=== PATIENT | female | born 1950 | race Caucasian/White ===

== ENCOUNTER 2016-06-25 13:32 | Emergency (ER) | payer MEDICARE, BC ==
[2016-06-25] MEDS ORDERED: Ibuprofen TAB* 600 MG PO ONE (14:31)
--- NOTE | 2016-06-25 15:11 | ED ---
Upper Extremity Pain - HPI Summary HPI Summary: 65 female presents complaining right shoulder pain and neck soreness after falling off of her bed from having a nightmare on 06/21/16. She states the pain did not appear until a few days later and has gotten worse over the past 2 days. Her daughter suggested she have it checked out. Patient states she did not lose consciousness she was just confused when she woke up on the ground from falling. She did take Advil yesterday which did give her some relief. She is able to move her shoulder although it causes pain. Denies numbness/tingling and weakness. - History of Current Complaint Chief Complaint: EDTraumaMultiple Stated Complaint: FALL / RT SHOULDER-NECK PAIN Time Seen by Provider: 06/25/16 14:16 Hx Obtained From: Patient Mechanism Of Injury: Fall From Height Of: - her bed onto ground Onset/Duration: Started Days Ago, Traumatic, Worse Since Timing: Constant Severity Initially: Mild Severity Currently: Moderate Pain Location: Shoulder Character: Dull, Aching Aggravating Factor(s): Movement, Extension Alleviating Factor(s): Rest, OTC Meds Associated Signs & Symptoms: Positive: Bruising. Negative: Swelling, Redness, Numbness/Tingling Related History: Dominant Hand Right - Allergies/Home Medications Allergies/Adverse Reactions: Allergies Allergy/AdvReac Type Severity Reaction Status Date / Time Iodinated Contrast Media Allergy Severe Shortness Verified 06/25/16 13:47 of Breath Alcohol Allergy Unknown Verified 06/25/16 13:47 Reaction Details PMH/Surg Hx/FS Hx/Imm Hx Endocrine/Hematology History: Denies: Hx Diabetes, Hx Thyroid Disease Cardiovascular History: Reports: Hx Angina, Hx Coronary Artery Disease - stent 2005, Hx Hypercholesterolemia, Hx Hypertension - TREATED, Other Cardiovascular Problems/Disorders - CHILDHOOD PROBLEMS WITH LUNGS Denies: Hx Congestive Heart Failure, Hx Pacemaker/ICD Respiratory History: Reports: Hx Asthma, Hx Pneumonia, Hx Pulmonary Edema - current Denies: Hx Chronic Obstructive Pulmonary Disease (COPD), Other Respiratory Problems/Disorders GI History: Denies: Hx Ulcer Musculoskeletal History: Reports: Hx Arthritis Sensory History: Reports: Hx Contacts or Glasses Denies: Hx Cataracts Opthamlomology History: Reports: Hx Contacts or Glasses Denies: Hx Cataracts - Surgical History Surgery Procedure, Year, and Place: hysterectomy. partial thyroidectomy. right shoulder surgery. [facility]. cardiac stent - Immunization History Date of Tetanus Vaccine: Unk Date of Influenza Vaccine: None for 2012 Infectious Disease History: No Infectious Disease History: Denies: Hx Clostridium Difficile, Hx Hepatitis, Hx Human Immunodeficiency Virus (HIV), Hx of Known/Suspected MRSA, Hx Shingles, Hx Tuberculosis, History Other Infectious Disease, Traveled Outside the [place] in Last 30 Days - Family History Known Family History: Positive: Cardiac Disease, Hypertension - Social History Alcohol Use: None Substance Use Type: Reports: None Hx Tobacco Use: No Smoking Status (MU): Never Smoked Tobacco Review of Systems Constitutional: Negative Cardiovascular: Negative Respiratory: Negative Gastrointestinal: Negative Positive: Arthralgia, Myalgia - right shoulder Skin: Negative Neurological: Negative Psychological: Normal All Other Systems Reviewed And Are Negative: Yes Physical Exam Triage Information Reviewed: Yes Vital Signs On Initial Exam: Initial Vitals Temp Pulse Resp BP Pulse Ox 98.3 F 57 16 128/76 98 06/25/16 13:48 06/25/16 13:48 06/25/16 13:48 06/25/16 13:48 06/25/16 13:48 Vital Signs Reviewed: Yes Appearance: Positive: Well-Appearing, No Pain Distress, Well-Nourished Skin: Positive: Warm, Skin Color Reflects Adequate Perfusion, Dry Head/Face: Positive: Normal Head/Face Inspection Eyes: Positive: Normal, Conjunctiva Clear ENT: Positive: Hearing grossly normal Neck: Positive: Supple, Nontender - bony tenderness. minimal tenderness when palpating the lateral muscles of the neck, no cervical bony tenderness. Respiratory/Lung Sounds: Positive: Clear to Auscultation, Breath Sounds Present Cardiovascular: Positive: Normal, RRR, Pulses are Symmetrical in both Upper and Lower Extremities Abdomen Description: Positive: Nontender, Soft Bowel Sounds: Positive: Present Musculoskeletal: Positive: Normal, Strength/ROM Intact - no crepitus, step-off or deformity noted. small area of ecchymosis noted, dime size. skin and sensation intact., Pain @ - right posterior shoulder blade.. Negative: Edema Right Neurological: Positive: Normal, Sensory/Motor Intact, Alert, Oriented to Person Place, Time, CN Intact II-III, Reflexes Intact, NV Bundle Intact Distally, Normal Gait Psychiatric: Positive: Normal Diagnostics - Vital Signs Vital Signs Temp Pulse Resp BP Pulse Ox 06/25/16 13:48 98.3 F 57 16 128/76 98 - Laboratory Lab Statement: Any lab studies that have been ordered have been reviewed, and results considered in the medical decision making process. - Radiology shoulder right Xray Interpretation: No Acute Changes - AC joint arthritis. without evidence of fracture. Radiology Interpretation Completed By: Radiologist Re-Evaluation - Re-Evaluation First Eval Re-Evaluation Time: 15:45 Change: Improved - pain has improved after ibuprofen Course/Dx - Course Course Of Treatment: x-ray was obtained and negative. given ibuprofen and had some relief. told to continue taking ibuprofen and ice/heat the area. follow-up. - Diagnoses Differential Diagnosis/HQI/PQRI: Positive: Contusion, Fracture (Closed), Strain , Sprain Provider Diagnoses: Muscle strain of left scapular region, Contusion Discharge - Discharge Plan Condition: Stable Disposition: HOME Patient Education Materials: Muscle Strain (ED), Shoulder Pain (ED) Referrals: Jesika Rios MD [Primary Care Provider] - Additional Instructions: Take ibuprofen or aleve for pain and inflammation. Rest the area. Ice/heat as needed and use pain as your guide for physical activity. If symptoms worsen or do not improve please seek medical attention. Follow up with your PCP is recommended.
--- NOTE | 2016-06-25 16:22 | RAD ---
Indication: Right shoulder pain. 3 views of the right shoulder demonstrates no fracture. AC joint arthritis is noted. Lung downey are clear. IMPRESSION: AC joint arthritis without evidence of fracture.
[2016-06-25 17:10] VITALS: BP 150/68
== END 2016-06-25 16:55 | disposition home or self-care (01) ==
LOC: ED 13:32
DX: S40.012A Contusion of left shoulder, initial encounter (principal); W19.XXXA Unspecified fall, initial encounter; Y93.9 Activity, unspecified; Y92.9 Unspecified place or not applicable; Y99.9 Unspecified external cause status
CPT/HCPCS: 99282; A9270-GY

== ENCOUNTER 2017-06-25 11:00 | Emergency (ER) | payer MEDICARE, BC ==
[2017-06-25 11:37] VITALS: BP 124/83
--- NOTE | 2017-06-25 12:47 | UC ---
Respiratory Complaint HPI - HPI Summary HPI Summary: 66 yo female has been wheezing x 1 month out of inhaler now with cough and right sided CP x 3-4 days ? fever no SOB - History of Current Complaint Chief Complaint: UCRespiratory Stated Complaint: FLU SYMPTOMS Time Seen by Provider: 06/25/17 12:31 Hx Obtained From: Patient Onset/Duration: Gradual Onset Severity Currently: Moderate Pain Intensity: 6 Pain Scale Used: 0-10 Numeric Character: Cough: Productive Alleviating Factors: Nothing - Allergies/Home Medications Allergies/Adverse Reactions: Allergies Allergy/AdvReac Type Severity Reaction Status Date / Time alcohol Allergy Unknown Verified 06/25/17 11:30 Reaction Details Iodinated Contrast- Oral and Allergy Shortness Verified 06/25/17 11:30 IV Dye of Breath shellfish derived Allergy Rash Verified 06/25/17 11:30 Home Medications: Home Medications Simvastatin 20 mg PO DAILY 06/25/17 [History Confirmed 06/25/17] PMH/Surg Hx/FS Hx/Imm Hx Previously Healthy: Yes Respiratory History: Asthma, Bronchitis, Pneumonia, Other - remote hx of TB Other Respiratory History: remote hx TB - Surgical History Surgical History: Yes Surgery Procedure, Year, and Place: hysterectomy. partial thyroidectomy. right shoulder surgery. [facility]. cardiac stent - Family History Known Family History: Positive: Cardiac Disease, Hypertension - Social History Alcohol Use: None Substance Use Type: None Smoking Status (MU): Never Smoked Tobacco Household Exposure Type: Cigarettes - Immunization History Most Recent Influenza Vaccination: unk Most Recent Tetanus Shot: unk Most Recent Pneumonia Vaccination: unk Review of Systems Constitutional: Fatigue Skin: Negative Eyes: Negative ENT: Negative Respiratory: Cough Cardiovascular: Negative Gastrointestinal: Negative Genitourinary: Negative Motor: Negative Neurovascular: Negative Musculoskeletal: Negative Neurological: Negative Psychological: Negative Is Patient Immunocompromised?: No All Other Systems Reviewed And Are Negative: Yes Physical Exam Triage Information Reviewed: Yes Appearance: Well-Appearing, No Pain Distress, Well-Nourished Vital Signs: Initial Vital Signs Temp 98.2 F 06/25/17 11:33 Pulse 92 06/25/17 11:33 Resp 16 06/25/17 11:33 BP 124/83 06/25/17 11:33 Pulse Ox 97 06/25/17 11:33 Vital Signs Reviewed: Yes Eye Exam: Normal Eyes: Positive: Conjunctiva Clear ENT: Positive: Hearing grossly normal, Uvula midline. Negative: Nasal congestion, Nasal drainage, Trismus, Muffled voice Neck: Positive: Supple, Nontender, No Lymphadenopathy Respiratory: Positive: No respiratory distress, No accessory muscle use, Wheezing Cardiovascular: Positive: RRR Musculoskeletal: Positive: ROM Intact, No Edema Neurological: Positive: Alert Psychological Exam: Normal Skin Exam: Normal UC Diagnostic Evaluation - Laboratory O2 Sat by Pulse Oximetry: 97 - normal/not hypoxic - Radiology Xray Interpretation: No Acute Changes - no infiltrate noted/scarring left lung unchanged Radiology Interpretation Completed By: Radiologist Respiratory Course/Dx - Course Course Of Treatment: influenza (-) - Differential Dx/Diagnosis Provider Diagnoses: acute bronchitis Discharge - Discharge Plan Condition: Stable Disposition: HOME Patient Education Materials: Acute Bronchitis (ED) Referrals: Jesika Rios MD [Primary Care Provider] -
--- NOTE | 2017-06-25 13:03 | RAD ---
Indication: Right-sided Rales. 2 views of the chest including dual energy PA views demonstrates left apical scarring and left suprahilar retraction. This is unchanged from May 01 2015. Lung downey are otherwise clear. IMPRESSION: No definite pneumonia is identified. Scarring and retraction of the left suprahilar region superiorly.
[2017-06-25] MEDS ORDERED: Albuterol HFA INHALER* 8 gm MDI INH ONE (13:08)
== END 2017-06-25 14:19 | disposition home or self-care (01) ==
LOC: UCEAST 11:00
DX: J20.9 Acute bronchitis, unspecified (principal); J45.909 Unspecified asthma, uncomplicated; Z90.710 Acquired absence of both cervix and uterus; E89.0 Postprocedural hypothyroidism; Z90.49 Acquired absence of other specified parts of digestive tract; Z95.5 Presence of coronary angioplasty implant and graft; Z86.11 Personal history of tuberculosis
CPT/HCPCS: 71046; 87502; 99212; A9270-GY; G0463

== ENCOUNTER 2018-04-09 10:02 | Emergency (ER) | payer MEDICARE, BC ==
--- OUTSIDE RECORDS SUMMARY | 2018-04-09 10:12 | XMS REPORT | Continuity of Care Document ---
:1950 External Reference #:[id number] Author Name Rigo Chino Care Team Providers Name Role Phone Lorenza Rios MD Primary Care Physician Unavailable Payers Type Date Identification Numbers Payment Provider Subscriber Policy Number: [id number] Medicare Abimbola Alvarez PayID: [id number] [address] [place] [address] Effective: 2007 Policy Number: [id number] Medicare Abimbola Alvarez Expires: 2018 PayID: [id number] [address] [place] [address] Policy Number: [id number] [facility] Abimbola Alvarez Group Name: [id number] [address] [address] PayID: [id number] JIMBO Carrington [id number] Advance Directives Description No Information Available Problems Date Description Provider Status Onset: 05/29/2012 Pure hypercholesterolemia Kris Soto M.D. Active Onset: 05/29/2012 Coronary arteriosclerosis Kris Soto M.D. Active Onset: 05/29/2012 Benign essential hypertension Kris Soto M.D. Active Onset: 06/08/2013 Pulmonary embolism Kris Soto M.D. Active Onset: 12/06/2015 Essential hypertension Kris Soto M.D. Active Family History Date Family Member(s) Problem(s) Comments General Hypertension General Hypercholesterolemia Father due to [place] () - htn : (age 65 Years) Mother due to [place] asthma Siblings 3 Social History Type Date Description Comments Sex Unknown Marital Status Lives With Children Occupation Currently Working [employer] Tobacco Use Start: Unknown Never Smoked Cigarettes ETOH Use Denies alcohol use Tobacco Use Start: Unknown Patient has never smoked Recreational Drug Use Denies Drug Use Smoking Status Reviewed: 04/07/18 Patient has never smoked Exercise Type/Frequency Does not exercise Exercise Limitations Joint Pain Allergies, Adverse Reactions, Alerts Description No Known Drug Allergies Medications Medication Date Status Form Strength Qnty SIG Indications Ordering Provider Altace 10/23/ Active Capsules 2.5mg 90caps 1 cap by Kris 2017 mouth F. daily Dilip Soto Crestor 09/18/ Active Tablets 5mg 90tabs 1 by mouth Kris 2016 every day F. (resumed Charles, 12/27/16) Dilip Potassium 12/29/ Active Tablets ER 10Meq 180tab 2 by mouth Kris Chloride Leeann ER 2015 s daily F. Dilip Soto Spironolactone 12/29/ Active Tablets 25mg 90tabs 1 by mouth I10 Kris 2015 every day F. 07/15 yoana Soto M.D. not taking Magnesium Oxide 09/03/ Active Tablets 250mg 30tabs 1 by mouth Kris 2013 every day Etta Soto M.D. Prilosec / Active Capsules 20mg 90caps 1 po qd Unknown 0000 DR Pam Norton / Active Misc 250/50 1units 1 puff bid Unknown 0000 Nitrostat / Active Tablets 0.4mg 25tabs one sl Kris 0000 Sub q5min up F. to 3 doses Mausexavi, as needed Dilip Potassium 07/29/ Hx Capsules 10Meq 180cap 2 by mouth Kris Chloride ER 2013 - ER s every day F. 12/29/ Charles, 2015 Dilip Aspirin 81 06/08/ Hx Tablets 81mg 1 tab po I25.10 Kris 2013 - daily F. 11/28/ Meaghanusexavi, 2015 Dilip Altace 12/22/ Hx Capsules 5mg 30caps 1 po qd Kris 2010 - F. 10/23/ Charles, 2016 Dilip Altace 12/07/ Hx Capsules 2.5mg 100cap 1 po qd Kris 2010 - . 12/22/ Mauser, 2010 Dilip Simvastatin 03/11/ Hx Tablets 20mg 30tabs 1 po qd Kris 2008 - . use, 2016 Dilip KCL 12/14/ Hx 10Meq one po qd Kris 2008 - . user, 2009 Dilip Potassium 08/11/ Hx Tablets ER 10Meq 60tabs 2 by mouth Kris Chloride CR 2008 - every day . user, 2013 Dilip Asa 06/11/ Hx 81mg 90unit 1 po qd Kris 2008 - . 01/12/ user, 2009 Dilip Skelaxin / Hx Tablets 800mg 30tabs 1 q 8 Unknown 0000 - hours prn muscle 2011 spasms Bisoprolol / Hx Tablets 5mg 10/03/16 Unknown Fumarate - 05/07 po 10/23/ qod x 2 2017 weeks and then DC Simvastatin / Hx Tablets 40mg 90tabs 1 po qhs Unknown 0000 - 2008 Oxycodone/Acetam / Hx Tablets 5-325mg one q 4 hr Unknown inophen 0000 - prn 2010 Celebrex / Hx Capsules 200mg 30caps 1 po qd Unknown - 2009 Medications Administered in Office Medication Date Status Form Strength Qnty SIG Indications Ordering Provider Inj, 11/26/ Administered Injection Gavino S. Regadenoson, 0.1 2016 DO Stevan MG FACC Aminophylline 11/26/ Administered Injection Gavino S. 2017 DO Stevan FACC Technetium TC 11/26/ Administered Injection Gavino S. 99M Tetrofosmin, 2017 DO Stevan Per Unit Dose Up FACC To 40 Millicuries Inj, 12/26/ Administered Injection Herrera D. Regadenoson, 0.1 2016 Brand, MG M.D. Technetium TC 12/26/ Administered Injection Herrera D. 99M Tetrofosmin, 2016 Brand, Per Unit Dose Up M.D. To 40 Millicuries Immunizations Description No Information Available Vital Signs Date Vital Result Comment 04/07/2018 11:42am Height 60 inches 5'0" Weight 122.38 lb Heart Rate 70 /min BP Systolic Sitting 142 mmHg rue reg cuff BP Diastolic Sitting 86 mmHg rue reg cuff BP Systolic Standing 139 mmHg la repeat sitting BP Diastolic Standing 74 mmHg la repeat sitting BMI (Body Mass Index) 23.9 kg/m2 Ejection Fraction 60-65% echo 11/13/16 07/15/2017 11:40am Height 60 inches 5'0" Weight 120.25 lb Heart Rate 72 /min BP Systolic Sitting 136 mmHg LA, reg cuff BP Diastolic Sitting 72 mmHg LA, reg cuff BMI (Body Mass Index) 23.5 kg/m2 Ejection Fraction 60%-65% echo 11/13/16 02/18/2017 10:47am Height 60 inches 5'0" Weight 121.75 lb with shoes Heart Rate 94 /min BP Systolic Sitting 156 mmHg Lue reg cuff BP Diastolic Sitting 88 mmHg Lue reg cuff BP Systolic Standing 139 mmHg LA Repeat Sitting BP Diastolic Standing 78 mmHg LA Repeat Sitting Respiratory Rate 17 /min BMI (Body Mass Index) 23.8 kg/m2 Ejection Fraction 72% date 11/26/16 ECHO 12/04/2016 11:13am Height 60 inches 5'0" Weight 122.00 lb with sandals Heart Rate 70 /min BP Systolic Sitting 126 mmHg Lue reg cuff BP Diastolic Sitting 80 mmHg Lue reg cuff BP Systolic Standing 118 mmHg Lue reg cuff BP Diastolic Standing 80 mmHg Lue reg cuff Respiratory Rate 17 /min BMI (Body Mass Index) 23.8 kg/m2 Ejection Fraction 60-65% date 11/13/16 ECHO 10/23/2016 10:50am Height 60 inches 5'0" Weight 122.00 lb without shoes Heart Rate 62 /min BP Systolic Sitting 110 mmHg Lue reg cuff BP Diastolic Sitting 72 mmHg Lue reg cuff BP Systolic Standing 122 mmHg Lue reg cuff BP Diastolic Standing 74 mmHg Lue reg cuff Respiratory Rate 16 /min BMI (Body Mass Index) 23.8 kg/m2 09/18/2016 10:45am Height 60 inches 5'0" Weight 121.75 lb with shoes Heart Rate 76 /min BP Systolic Sitting 124 mmHg LA reg cuff BP Diastolic Sitting 70 mmHg LA reg cuff BMI (Body Mass Index) 23.8 kg/m2 Ejection Fraction 50% - 55% stress echo 07/28/08 01/16/2016 1:05pm Height 60 inches 5'0" Weight 123.00 lb with shoe s Heart Rate 66 /min BP Systolic Sitting 114 mmHg LA reg cuff BP Diastolic Sitting 70 mmHg LA reg cuff BP Systolic Standing 116 mmHg LA reg cuff BP Diastolic Standing 70 mmHg LA reg cuff Respiratory Rate 16 /min BMI (Body Mass Index) 24.0 kg/m2 Ejection Fraction 68% date 12/27/15 Nem Convert to NLM 12/30/2015 7:57am Height 60 inches 5'0" Weight 125.00 lb w/ shoes Heart Rate 56 /min BP Systolic Sitting 120 mmHg Lue, reg cuff BP Diastolic Sitting 84 mmHg Lue, reg cuff BP Systolic Standing 132 mmHg Lue BP Diastolic Standing 90 mmHg Lue Respiratory Rate 16 /min BMI (Body Mass Index) 24.4 kg/m2 Ejection Fraction 55-60% as of 06/08/2005 echo 12/06/2015 11:34am Height 60 inches 5'0" Weight 122.00 lb w/shoes Heart Rate 54 /min BP Systolic Sitting 150 mmHg LA reg cuff BP Diastolic Sitting 82 mmHg LA reg cuff BMI (Body Mass Index) 23.8 kg/m2 Ejection Fraction 55-60% Stress Test 07/30/12 10/12/2014 2:13pm Height 60 inches 5'0" Weight 124.00 lb w/o shoes Heart Rate 76 /min reg BP Systolic Sitting 124 mmHg Lue, reg cuff BP Diastolic Sitting 80 mmHg Lue, reg cuff BP Systolic Standing 120 mmHg Lue BP Diastolic Standing 82 mmHg Lue Respiratory Rate 18 /min BMI (Body Mass Index) 24.2 kg/m2 06/08/2013 1:13pm Height 60 inches 5'0" Weight 116.12 lb Heart Rate 64 /min BP Systolic Sitting 144 mmHg BP Diastolic Sitting 80 mmHg BMI (Body Mass Index) 22.7 kg/m2 05/29/2012 8:29am Height 60 inches 5'0" Weight 118.00 lb Heart Rate 52 /min BP Systolic 126 mmHg BP Diastolic 80 mmHg BMI (Body Mass Index) 23.0 kg/m2 07/19/2011 2:51pm Height 60 inches 5'0" Weight 122.00 lb Heart Rate 54 /min BP Systolic Sitting 124 mmHg L BP Diastolic Sitting 80 mmHg L BMI (Body Mass Index) 23.8 kg/m2 12/07/2010 2:54pm Height 60 inches 5'0" Weight 124.00 lb Heart Rate 55 /min BP Systolic Sitting 154 mmHg BP Diastolic Sitting 84 mmHg BMI (Body Mass Index) 24.2 kg/m2 01/12/2010 10:55am Height 60 inches 5'0" Weight 125.00 lb Heart Rate 67 /min BP Systolic Sitting 130 mmHg L BP Diastolic Sitting 74 mmHg L BMI (Body Mass Index) 24.4 kg/m2 02/11/2009 11:36am Height 60 inches 5'0" Weight 119.00 lb Heart Rate 57 /min BP Systolic Sitting 130 mmHg L BP Diastolic Sitting 74 mmHg L BMI (Body Mass Index) 23.2 kg/m2 06/11/2008 9:22am Height 60 inches 5'0" Weight 109.00 lb Heart Rate 57 /min BP Systolic Sitting 120 mmHg left arm, right arm 124/78 BP Diastolic Sitting 70 mmHg left arm, right arm 124/78 BP Systolic Standing 104 mmHg BP Diastolic Standing 70 mmHg BMI (Body Mass Index) 21.3 kg/m2 Results Test Date Facility Test Result H/L Range Note CBC Auto Diff 07/16/2017 [facility] White Blood 7.2 10^3/uL N 3.5-10.[address] [place] [address] [phone] Red Blood Count 4.57 10^6/uL N 4.0-5.4 Hemoglobin 13.3 g/dL N 12.0-16.0 Hematocrit 39 % N 35-47 Mean Corpuscular Volume 86 fL N 80-97 Mean Corpuscular Hemoglobin 29 pg N 27-31 Mean Corpuscular HGB Conc 34 g/dL N 31-36 Red Cell Distribution Width 13 % N 10.5-15 Platelet Count 248 10^3/uL N 150-450 Mean Platelet Volume 10 um3 N 7.4-10.4 Abs Neutrophils 4.6 10^3/uL N 1.5-7.7 Abs Lymphocytes 1.9 10^3/uL N 1.0-4.8 Abs Monocytes 0.5 10^3/uL N 0-0.8 Abs Eosinophils 0.2 10^3/uL N 0-0.6 Abs Basophils 0 10^3/uL N 0-0.2 Abs Nucleated RBC 0 10^3/uL Granulocyte % 63.1 % N 38-83 Lymphocyte % 26.8 % N 25-47 Monocyte % 7.2 % High 0-7 Eosinophil % 2.3 % N 0-6 Basophil % 0.6 % N 0-2 Nucleated Red Blood Cells % 0.1 Laboratory test 07/16/2017 [facility] B-Type 26 pg/mL [address] [place] [address] Peptide BNP [phone] Lipid Panel - 07/16/2017 [facility] Creatine 173 U/L N 10-[address] Kinase(CK) [place] [address] [phone] Comp Metabolic 07/16/2017 [facility] Sodium 140 mmol/L N 133- [address] [place] [address] [phone] Potassium 4.2 mmol/L N 3.5-5.0 Chloride 105 mmol/L N 101-111 Co2 Carbon Dioxide 28 mmol/L N 22-32 Anion Gap 7 mmol/L N 2-11 Glucose 105 mg/dL High 70-100 Blood Urea Nitrogen 19 mg/dL N 6-24 Creatinine 0.85 mg/dL N 0.51-0.95 BUN/Creatinine Ratio 22.4 High 8-20 Calcium 9.4 mg/dL N 8.6-10.3 Total Protein 7.4 g/dL N 6.4-8.9 Albumin 4.3 g/dL N 3.2-5.2 Globulin 3.1 g/dL N 2-4 Albumin/Globulin Ratio 1.4 N 1-3 Total Bilirubin 0.40 mg/dL N 0.2-1.0 Alkaline Phosphatase 50 U/L N 34-104 Alt 11 U/L N 7-52 Ast 13 U/L N 13-39 Egfr Non- 66.7 >60 Egfr 85.8 >60 3 Lipid Profile 07/16/2017 [facility] Triglycerides 90 mg/dL 4 (Trig/Chol/HDL) [address] [place] [address] [phone] Cholesterol 125 mg/dL 5 HDL Cholesterol 46.0 mg/dL 6 LDL Cholesterol 61 mg/dL 7 Laboratory test 10/09/2016 [facility] Magnesium 1.7 mg/dL Low 1.9-2.[address] [place] [address] [phone] Lipid Panel - 10/09/2016 [facility] Creatine 86 U/L N 10-[address] Kinase(CK) [place] [address] [phone] Comp Metabolic 10/09/2016 [facility] Sodium 139 mmol/L N 133- [address] [place] [address] [phone] Potassium 4.4 mmol/L N 3.5-5.0 Chloride 104 mmol/L N 101-111 Co2 Carbon Dioxide 26 mmol/L N 22-32 Anion Gap 9 mmol/L N 2-11 Glucose 106 mg/dL High 70-100 Blood Urea Nitrogen 15 mg/dL N 6-24 Creatinine 0.85 mg/dL N 0.51-0.95 BUN/Creatinine Ratio 17.6 N 8-20 Calcium 9.1 mg/dL N 8.6-10.3 Total Protein 7.0 g/dL N 6.4-8.9 Albumin 4.1 g/dL N 3.2-5.2 Globulin 2.9 g/dL N 2-4 Albumin/Globulin Ratio 1.4 N 1-3 Total Bilirubin 0.50 mg/dL N 0.2-1.0 Alkaline Phosphatase 39 U/L N 34-104 Alt 10 U/L N 7-52 Ast 13 U/L N 13-39 Egfr Non- 66.9 N >60 Egfr 86.1 N >60 8 Lipid Profile 10/09/2016 [facility] Triglycerides 103 mg/dL N 9 (Trig/Chol/HDL) [address] [place] [address] [phone] Cholesterol 128 mg/dL N 10 HDL Cholesterol 40.3 mg/dL N 11 LDL Cholesterol 67 mg/dL N 12 CBC Auto Diff 10/09/2016 [facility] White Blood 7.6 10^3/uL N 3.5-10.[address] [place] [address] [phone] Red Blood Count 4.30 10^6/uL N 4.0-5.4 Hemoglobin 12.3 g/dL N 12.0-16.0 Hematocrit 37 % N 35-47 Mean Corpuscular Volume 86 fL N 80-97 Mean Corpuscular Hemoglobin 29 pg N 27-31 Mean Corpuscular HGB Conc 33 g/dL N 31-36 Red Cell Distribution Width 13 % N 10.5-15 Platelet Count 250 10^3/uL N 150-450 Mean Platelet Volume 9 um3 N 7.4-10.4 Abs Neutrophils 3.8 10^3/uL N 1.5-7.7 Abs Lymphocytes 3.0 10^3/uL N 1.0-4.8 Abs Monocytes 0.6 10^3/uL N 0-0.8 Abs Eosinophils 0.2 10^3/uL N 0-0.6 Abs Basophils 0 10^3/uL N 0-0.2 Abs Nucleated RBC 0.01 10^3/uL N Granulocyte % 49.7 % N 38-83 Lymphocyte % 39.9 % N 25-47 Monocyte % 7.6 % N 1-9 Eosinophil % 2.2 % N 0-6 Basophil % 0.6 % N 0-2 Nucleated Red Blood Cells % 0.1 N Laboratory test 10/09/2016 [facility] TSH (Thyroid 2.82 mcIU/mL N 0.34-5.60 finding [address] [facility] Stim [place]orm) [place] [address] [phone] Iron & Iron 10/09/2016 [facility] Iron 91 g/dL N 50-212 [address] [place] [address] [phone] Unsaturated Iron Binding 262 g/dL N Total Iron Binding Capacity 353 g/dL N 250-450 % Iron Saturation 26 % N 15-55 Basic Metabolic Panel 01/11/2016 [facility] Sodium 138 mmol/L N 133-145 [address] [place] [address] [phone] Potassium 4.3 mmol/L N 3.5-5.0 Chloride 101 mmol/L N 101-111 Co2 Carbon Dioxide 30 mmol/L N 22-32 Anion Gap 7 mmol/L N 2-11 Glucose 95 mg/dL N 70-100 Blood Urea Nitrogen 16 mg/dL N 6-24 Creatinine 0.88 mg/dL N 0.51-0.95 BUN/Creatinine Ratio 18.2 N 8-20 Calcium 9.6 mg/dL N 8.6-10.3 Egfr Non- 64.3 N >60 Egfr 82.7 N >60 13 Lipid Panel - 12/09/2015 [facility] Creatine 129 U/L N 10-[address] Kinase(CK) [place] [address] [phone] Comp Metabolic 12/09/2015 [facility] Sodium 141 N 133-[address] mmol/[place] [address] [phone] Potassium 3.6 mmol/L N 3.5-5.0 Chloride 106 mmol/L N 101-111 Co2 Carbon Dioxide 28 mmol/L N 22-32 Anion Gap 7 mmol/L N 2-11 Glucose 104 mg/dL High 70-100 Blood Urea Nitrogen 16 mg/dL N 6-24 Creatinine 0.75 mg/dL N 0.51-0.95 BUN/Creatinine Ratio 21.3 High 8-20 Calcium 9.0 mg/dL N 8.6-10.3 Total Protein 6.8 g/dL N 6.4-8.9 Albumin 4.0 g/dL N 3.2-5.2 Globulin 2.8 g/dL N 2-4 Albumin/Globulin Ratio 1.4 N 1-3 Total Bilirubin 0.40 mg/dL N 0.2-1.0 Alkaline Phosphatase 41 U/L N 34-104 Alt 12 U/L N 7-52 Ast 14 U/L N 13-39 Egfr Non- 77.3 N >60 Egfr 99.4 N >60 14 Lipid Profile 12/09/2015 [facility] Triglycerides 123 mg/dL N 15 (Trig/Chol/HDL) [address] [place] [address] [phone] Cholesterol 123 mg/dL N 16 HDL Cholesterol 45.3 mg/dL N 17 LDL Cholesterol 53 mg/dL N 18 CBC Auto Diff 12/09/2015 [facility] White Blood 7.3 10^3/uL N 3.5-10.[address] [place] [address] [phone] Red Blood Count 4.49 10^6/uL N 4.0-5.4 Hemoglobin 12.7 g/dL N 12.0-16.0 Hematocrit 38 % N 35-47 Mean Corpuscular Volume 86 fL N 80-97 Mean Corpuscular Hemoglobin 28 pg N 27-31 Mean Corpuscular HGB Conc 33 g/dL N 31-36 Red Cell Distribution Width 12 % N 10.5-15 Platelet Count 232 10^3/uL N 150-450 Mean Platelet Volume 9 um3 N 7.4-10.4 Abs Neutrophils 4.2 10^3/uL N 1.5-7.7 Abs Lymphocytes 2.4 10^3/uL N 1.0-4.8 Abs Monocytes 0.6 10^3/uL N 0-0.8 Abs Eosinophils 0.1 10^3/uL N 0-0.6 Abs Basophils 0 10^3/uL N 0-0.2 Abs Nucleated RBC 0.01 10^3/uL N Granulocyte % 57.1 % N 38-83 Lymphocyte % 32.4 % N 25-47 Monocyte % 8.0 % N 1-9 Eosinophil % 1.8 % N 0-6 Basophil % 0.7 % N 0-2 Nucleated Red Blood Cells % 0.1 N Laboratory test 12/09/2015 [facility] Magnesium 1.6 mg/dL Low 1.9-2.7 finding [address] [place] [address] [phone] CBC Auto Diff 10/13/2014 White Blood 7.4 N 4.8-10.8 Count 10^3/uL Red Blood Count 4.60 10^6/uL N 4.0-5.4 Hemoglobin 13.3 g/dL N 12.0-16.0 Hematocrit 41 % N 35-47 Mean Corpuscular Volume 89 fL N 80-97 Mean Corpuscular Hemoglobin 29 pg N 27-31 Mean Corpuscular HGB Conc 33 g/dL N 31-36 Red Cell Distribution Width 13 % N 10.5-15 Platelet Count 282 10^3/uL N 150-450 Mean Platelet Volume 9 um3 N 7.4-10.4 Abs Neutrophils 4.2 10^3/uL N 1.5-7.7 Abs Lymphocytes 2.5 10^3/uL N 1.0-4.8 Abs Monocytes 0.5 10^3/uL N 0-0.8 Abs Eosinophils 0.1 10^3/uL N 0-0.6 Abs Basophils 0.1 10^3/uL N 0-0.2 Abs Nucleated RBC 0 10^3/uL N Granulocyte % 56.6 % N 38-83 Lymphocyte % 33.3 % N 25-47 Monocyte % 7.2 % N 1-9 Eosinophil % 1.7 % N 0-6 Basophil % 1.2 % N 0-2 Nucleated Red Blood Cells % 0 N Lipid Panel - [facility] 10/13/2014 Creatine Kinase(CK) 68 U/L N 10-223 19 Comp Metabolic Panel 10/13/2014 Sodium 139 mmol/L N 133-145 Potassium 4.2 mmol/L N 3.5-5.0 Chloride 106 mmol/L N 101-111 Co2 Carbon Dioxide 28 mmol/L N 22-32 Anion Gap 5 mmol/L N 2-11 Glucose 101 mg/dL High 70-100 Blood Urea Nitrogen 15 mg/dL N 6-24 Creatinine 0.91 mg/dL N 0.51-0.95 BUN/Creatinine Ratio 16.5 N 8-20 Calcium 9.2 mg/dL N 8.6-10.3 Total Protein 7.3 g/dL N 6.4-8.9 Albumin 4.3 g/dL N 3.2-5.2 Globulin 3.0 g/dL N 2-4 Albumin/Globulin Ratio 1.4 N 1-3 Total Bilirubin 0.50 mg/dL N 0.2-1.0 Alkaline Phosphatase 48 U/L N 34-104 Alt 14 U/L N 7-52 Ast 14 U/L N 13-39 Egfr Non- 62.2 N >60 Egfr 80.0 N >60 20 Lipid Profile (Trig/Chol/HDL) 10/13/2014 Triglycerides 102 mg/dL N 21 Cholesterol 146 mg/dL N 22 HDL Cholesterol 46.3 mg/dL N 23 LDL Cholesterol 79 mg/dL N 24 Laboratory test 10/13/2014 Magnesium 2.0 mg/dL N 1.9-2.7 25 finding Laboratory test 09/02/2013 [facility] Magnesium 1.8 mg/dL Low 1.9-2.7 finding [address] [place] [address] [phone] Basic Metabolic Panel 09/02/2013 [facility] Sodium 140 mmol/L N 133-145 [address] [place] [address] [phone] Potassium 4.0 mmol/L N 3.7-5.6 Chloride 106 mmol/L N 101-111 Co2 Carbon Dioxide 29 mmol/L N 22-32 Anion Gap 5 mmol/L N 2-11 Glucose 103 mg/dL High 70-100 Blood Urea Nitrogen 15 mg/dL N 6-24 Creatinine 0.85 mg/dL N 0.51-0.95 BUN/Creatinine Ratio 17.6 N 8-20 Calcium 9.0 mg/dL N 8.6-10.3 Egfr Non- 67.5 N >60 Egfr 86.9 N >60 26 Comp Metabolic Panel 07/23/2013 [facility] Sodium 142 mmol/L N 133-[address] [place] [address] [phone] Potassium 3.5 mmol/L Low 3.7-5.6 Chloride 108 mmol/L N 101-111 Co2 Carbon Dioxide 28 mmol/L N 22-32 Anion Gap 6 mmol/L N 2-11 Glucose 99 mg/dL N 70-100 Blood Urea Nitrogen 13 mg/dL N 6-24 Creatinine 0.80 mg/dL N 0.51-0.95 BUN/Creatinine Ratio 16.3 N 8-20 Calcium 8.6 mg/dL N 8.6-10.3 Total Protein 6.6 g/dL N 6.4-8.9 Albumin 4.0 g/dL N 3.2-5.2 Globulin 2.6 g/dL N 2-4 Albumin/Globulin Ratio 1.5 N 1-3 Total Bilirubin 0.50 mg/dL N 0.2-1.0 Alkaline Phosphatase 39 U/L N 34-104 Alt 19 U/L N 7-52 Ast 19 U/L N 13-39 Egfr Non- 72.4 N >60 Egfr 93.2 N >60 28 Lipid Panel - 07/23/2013 [facility] Creatine Kinase 108 U/L N 10-223 [address] [place] [address] [phone] CBC Auto Diff 07/23/2013 [facility] White Blood 6.5 N 4.8- 10.[address] Count 10^3/[place] [address] [phone] Red Blood Count 4.24 10^6/uL N 4.0-5.4 Hemoglobin 12.6 g/dL N 12.0-16.0 Hematocrit 37 % N 35-47 Mean Corpuscular Volume 87 fL N 80-97 Mean Corpuscular Hemoglobin 30 pg N 27-31 Mean Corpuscular HGB Conc 34 g/dL N 31-36 Red Cell Distribution Width 12 % N 10.5-15 Platelet Count 239 10^3/uL N 150-450 Mean Platelet Volume 9 um3 N 7.4-10.4 Abs Neutrophils 3.5 10^3/uL N 1.5-7.7 Abs Lymphocytes 2.3 10^3/uL N 1.0-4.8 Abs Monocytes 0.5 10^3/uL N 0-0.8 Abs Eosinophils 0.2 10^3/uL N 0-0.6 Abs Basophils 0 10^3/uL N 0-0.2 Abs Nucleated RBC 0 10^3/uL N Granulocyte % 54.0 % N 38-83 Lymphocyte % 35.3 % N 25-47 Monocyte % 7.3 % N 1-9 Eosinophil % 2.7 % N 0-6 Basophil % 0.7 % N 0-2 Nucleated Red Blood Cells % 0 N Lipid Profile 07/23/2013 [facility] Triglycerides 75 mg/dL N 30 (Trig/Chol/HDL) [address] [place] [address] [phone] Cholesterol 131 mg/dL N 31 HDL Cholesterol 46.2 mg/dL N 32 LDL Cholesterol 70 mg/dL N 33 CBC Auto Diff 06/30/2012 [facility] White Blood 6.6 10^3/uL 4.8-10.[address] [place] [address] [phone] Red Blood Count 4.40 10^6/uL 4.0-5.4 Hemoglobin 13.1 g/dL 12.0-16.0 Hematocrit 39 % 35-47 Mean Corpuscular Volume 89 fL 80-97 Mean Corpuscular Hemoglobin 30 pg 27-31 Mean Corpuscular HGB Conc 34 g/dL 31-36 Red Cell Distribution Width 13 % 10.5-15 Platelet Count 263 10^3/uL 150-450 Mean Platelet Volume 9 um3 7.4-10.4 Abs Neutrophils 3.4 10^3/uL 1.5-7.7 Abs Lymphocytes 2.6 10^3/uL 1.0-4.8 Abs Monocytes 0.5 10^3/uL 0-0.8 Abs Eosinophils 0.1 10^3/uL 0-0.6 Abs Basophils 0.1 10^3/uL 0-0.2 Abs Nucleated RBC 0 10^3/uL Granulocyte % 51.4 % 38-83 Lymphocyte % 38.6 % 25-47 Monocyte % 7.1 % 1-9 Eosinophil % 2.1 % 0-6 Basophil % 0.8 % 0-2 Nucleated Red Blood Cells % 0 Laboratory test 06/30/2012 [facility] Creatine Kinase 115 U/L 0-200 34 finding [address] [place] [address] [phone] Lipid Profile 06/30/2012 [facility] Triglycerides 110 mg/dL 40-200 (Trig/Chol/HDL) [address] [place] [address] [phone] Cholesterol 146 mg/dL Less than 200 HDL Cholesterol 46 mg/dL 40-60 35 Cholesterol/HDL Ratio 3.2 Average 1-4.44 LDL Cholesterol 78.0 mg/dL Less Than 100 36 Comp Metabolic Panel 06/30/2012 [facility] Sodium 141 mmol/L 133-145 [address] [place] [address] [phone] Potassium 3.8 mmol/L 3.5-5.0 Chloride 105 mmol/L 101-111 Co2 Carbon Dioxide 30.0 mmol/L 22-32 Anion Gap 6.0 mmol/L 2-11 Glucose 99 mg/dL 70-100 Blood Urea Nitrogen 10 mg/dL 6-24 Creatinine 0.90 mg/dL 0.50-1.40 BUN/Creatinine Ratio 11.1 8-20 Calcium 9.2 mg/dL 8.1-9.9 Total Protein 7.3 g/dL 6.2-8.1 Albumin 4.0 g/dL 3.2-5.2 Globulin 3.3 g/dL 2-4 Albumin/Globulin Ratio 1.2 1-3 Total Bilirubin 0.7 mg/dL 0.4-1.5 Alkaline Phosphatase 36 U/L 30-110 Alt 13 U/L Low 14-54 Ast 16 U/L 12-42 Egfr Non- 63.4 >60 Egfr 81.6 >60 37 Laboratory test 12/20/2010 [facility] TSH 4.14 MIU/ML 0.34- 5.60 finding [address] [place] [address] [phone] CBC Auto Diff 12/20/2010 [facility] White Blood 6.7 CUMM 4.8- 10.[address] [place] [address] [phone] Red Cell Count 4.48 CUMM 4.2-5.4 Hemoglobin 13.1 g/dL 12.0-16.0 Hematocrit 39 % 35-47 Mean Corpuscular Volume 87 um3 79-97 Mean Corpuscular Hemoglob 29 pg 27-31 Mean Corpuscular HGB Cone 34 g/dL 32-36 Redcell Distribution WDTH 13 % 10.5-15 Platelet Count 227 CUMM 150-450 Mean Platelet Volume 9.9 um3 7.4-10.4 Gran % 54.2 % 38-83 Lymph % 35.2 % 25-47 Mononuclear % 8.0 % 1-9 Eosinophil % 2.2 % 0-6 Basophil % 0.4 % 0-2 Abs Lymphs 2.4 1.0-4.8 Abs Mononuclear 0.5 0-0.8 Absolute Neutrophil Count 3.6 1.5-7.7 Abs Eosinophils 0.1 0-0.6 Abs Basophils 0 0-0.2 Laboratory test 12/20/2010 [facility] CPK (Creatine 137 U/L 0 -[address] Kinase) [place] [address] [phone] Lipid Profile 12/20/2010 [facility] Triglyceride 108 mg/dL 40 -200 (Trig/Chol/HDL) [address] [place] [address] [phone] Cholesterol 139 mg/dL Less Than 200 38 High Density Lipoprotein 36 mg/dL Low 40-60 39 Cholesterol/HDL Ratio 3.86 AVERAGE 1-4.44 Low Density Lipoprotein 81 mg/dL Less Than 100 40 Comp Metabolic Panel 12/20/2010 [facility] Sodium 142 mmol/L 135-145 [address] [place] [address] [phone] Potassium 3.8 mmol/L 3.5-5.0 Chloride 105 mmol/L 101-111 Co2 (Carbon Dioxide) 29.0 mmol/L 22-32 Anion Gap 8.0 mmol/L 2-11 41 Glucose 99 mg/dL 70-100 BUN 11 mg/dL 6-24 Creatinine 0.80 mg/dL 0.50-1.40 One Over Creatinine 1.20 BUN/Creatinine Ratio 13.8 8-20 Calcium 8.9 mg/dL 8.1-9.9 Total Protein 7.0 GM/DL 6.2-8.1 Albumin 4.1 GM/DL 3.2-5.2 Globulin 2.9 GM/DL 2-4 Albumin/Globulin Ratio 1.4 1-3 Bilirubin Total 0.8 mg/dL 0.4-1.5 42 Alkaline Phosphatase 46 U/L 30-110 Alt (SGPT) 16 U/L 14-54 Ast (Sgot) 17 U/L 12-42 eGFR Non- 72.9 > 60 eGFR 93.8 > 60 43 Urinalysis 12/27/2009 [facility] Ua Color YELLOW Yellow [address] [place] [address] [phone] Appearance-Urine CLEAR Clear Specific Fiatt-Ur 1.006 Low 1.010-1.030 Esterase-Urine NEGATIVE Negative Nitrite NEGATIVE Negative [id number] NEGATIVE Negative Protein-Urine NEGATIVE Negative PH-Urine 7.0 5-9 Blood-Urine NEGATIVE Negative Ketones-Urine NEGATIVE Negative Bilirubin-Ur NEGATIVE Negative Glucose-Urine NEGATIVE Negative CBC With 12/27/2009 [facility] White Blood 6.0 CUMM 4.8-10.8 Electronic Diff [address] [place] [address] [phone] Red Cell Count 4.08 CUMM Low 4.2-5.4 Hemoglobin 12.4 g/dL 12.0-16.0 Hematocrit 36 % 35-47 Mean Corpuscular Volume 88 um3 79-97 Mean Corpuscular Hemoglob 31 pg 27-31 Mean Corpuscular HGB Cone 35 g/dL 32-36 Redcell Distribution WDTH 13 % 10.5-15 Platelet Count 240 CUMM 150-450 Mean Platelet Volume 8.0 um3 7.4-10.4 Gran % 58.5 % 38-83 Lymph % 33.4 % 25-47 Mononuclear % 4.9 % 1-9 Eosinophil % 2.5 % 0-6 Basophil % 0.7 % 0-2 Abs Lymphs 2.0 1.0-4.8 Abs Mononuclear 0.3 0-0.8 Absolute Neutrophil Count 3.5 1.5-7.7 Abs Eosinophils 0.2 0-0.6 Abs Basophils 0 0-0.2 44 Comp Metabolic Panel 12/27/2009 [facility] Sodium 144 mmol/L 135-145 [address] [place] [address] [phone] Potassium 3.5 mmol/L 3.5-5.0 Chloride 109 mmol/L 101-111 Co2 (Carbon Dioxide) 27.0 mmol/L 22-32 Anion Gap 8.0 mmol/L 2-11 45 Glucose 94 mg/dL 70-100 46 BUN 9 mg/dL 6-24 Creatinine 0.70 mg/dL 0.50-1.40 One Over Creatinine 1.40 BUN/Creatinine Ratio 12.9 8-20 Calcium 8.7 mg/dL 8.1-9.9 47 Total Protein 6.5 GM/DL 6.2-8.1 Albumin 3.7 GM/DL 3.2-5.2 Globulin 2.8 GM/DL 2-4 Albumin/Globulin Ratio 1.3 1-3 Bilirubin Total 0.9 mg/dL 0.4-1.5 48 Alkaline Phosphatase 36 U/L 30-110 Alt (SGPT) 14 U/L 14-54 Ast (Sgot) 20 U/L 12-42 eGFR Non- 90.7 > 60 eGFR 109.8 > 60 49 Laboratory test 12/27/2009 [facility] Troponin-I (TnI) 0.01 NG/ ML 50 finding [address] [place] [address] [phone] C Reactive Protein < 0.5 mg/dL Less Than 0.5 Protime 12/27/2009 [facility] Inr 1.02 0.82-1.17 51 [address] [place] [address] [phone] Protime 12.1 SEC 10.2-14.8 52 Laboratory test 12/27/2009 [facility] PTT (Aptt) 29.9 25.15- 38.53 53 finding [address] [place] [address] [phone] D Dimer Quantitative < 200 Less Than 230 Comp Metabolic Panel 03/10/2009 [facility] Sodium 141 mmol/L 135-145 [address] [place] [address] [phone] Potassium 4.6 mmol/L 3.5-5.0 Chloride 105 mmol/L 101-111 Co2 (Carbon Dioxide) 31.0 mmol/L 22-32 Anion Gap 5.0 mmol/L 2-11 54 Glucose 96 mg/dL 70-100 55 BUN 12 mg/dL 6-24 Creatinine 0.80 mg/dL 0.50-1.40 One Over Creatinine 1.20 BUN/Creatinine Ratio 15.0 8-20 Calcium 9.0 mg/dL 8.1-9.9 56 Total Protein 6.8 GM/DL 6.2-8.1 Albumin 3.9 GM/DL 3.6-5.4 Globulin 2.9 GM/DL 2-4 Albumin/Globulin Ratio 1.3 1-3 Bilirubin Total 0.9 mg/dL 0.4-1.5 57 Alkaline Phosphatase 42 U/L 30-110 Alt (SGPT) 35 U/L 14-54 Ast (Sgot) 26 U/L 12-42 eGFR Non- 78.0 > 60 eGFR 94.4 > 60 58 Lipid Profile 03/10/2009 [facility] Triglyceride 104 mg/dL 40 -200 (Trig/Chol/HDL) [address] [place] [address] [phone] Cholesterol 136 mg/dL Less Than 200 59 High Density Lipoprotein 43 mg/dL 40-60 60 Cholesterol/HDL Ratio 3.16 AVERAGE 1-4.44 Low Density Lipoprotein 72 mg/dL Less Than 100 61 Laboratory test 03/10/2009 [facility] CPK (Creatine 174 U/L High 0-[address] Kinase) [place] [address] [phone] Basic Metabolic 12/03/2008 [facility] Sodium 143 135-[address] mmol/L [place], [place] [id number] [phone] Potassium 3.7 mmol/L 3.5-5.0 Chloride 108 mmol/L 101-111 Co2 (Carbon Dioxide) 28.0 mmol/L 22-32 Anion Gap 7.0 mmol/L 2-11 62 Glucose 98 mg/dL 70-100 63 BUN 15 mg/dL 6-24 Creatinine 0.70 mg/dL 0.50-1.40 One Over Creatinine 1.40 BUN/Creatinine Ratio 21.4 High 8-20 Calcium 9.3 mg/dL 8.1-9.9 64 eGFR Non- 91.0 > 60 eGFR 110.1 > 60 65 Basic Metabolic Panel 08/30/2008 [facility] Sodium 139 mmol/L 135-145 66 [address] [place] [address] [phone] Potassium 4.9 mmol/L 3.5-5.0 Chloride 104 mmol/L 101-111 Co2 (Carbon Dioxide) 27.0 mmol/L 22-32 Anion Gap 8.0 mmol/L 2-11 67 Glucose 68 mg/dL Low 70-100 68 BUN 16 mg/dL 6-24 Creatinine 0.80 mg/dL 0.50-1.40 One Over Creatinine 1.20 BUN/Creatinine Ratio 20.0 8-20 Calcium 9.3 mg/dL 8.1-9.9 69 Comp Metabolic Panel 08/09/2008 [facility] Sodium 145 mmol/L 135-145 [address] [place] [address] [phone] Potassium 3.4 mmol/L Low 3.5-5.0 Chloride 108 mmol/L 101-111 Co2 (Carbon Dioxide) 30.0 mmol/L 22-32 Anion Gap 7.0 mmol/L 2-11 70 Glucose 98 mg/dL 70-100 71 BUN 12 mg/dL 6-24 Creatinine 0.80 mg/dL 0.50-1.40 One Over Creatinine 1.20 BUN/Creatinine Ratio 15.0 8-20 Calcium 9.1 mg/dL 8.1-9.9 72 Total Protein 6.4 GM/DL 6.2-8.1 Albumin 3.8 GM/DL 3.6-5.4 Globulin 2.6 GM/DL 2-4 Albumin/Globulin Ratio 1.5 1-3 Bilirubin Total 0.8 mg/dL 0.4-1.5 Alkaline Phosphatase 39 U/L 30-110 Alt (SGPT) 12 U/L Low 14-54 Ast (Sgot) 15 U/L 12-42 Lipid Profile 08/09/2008 [facility] Triglyceride 61 mg/dL 40- 200 (Trig/Chol/HDL) [address] [place] [address] [phone] Cholesterol 127 mg/dL Less Than 200 73 High Density Lipoprotein 57 mg/dL 40-60 74 Cholesterol/HDL Ratio 2.23 AVERAGE 1-4.44 Low Density Lipoprotein 58 mg/dL Less Than 100 75 Laboratory test 08/09/2008 [facility] TSH 3.41 MIU/ML 0.34- 5.[address] [place] [address] [phone] CBC With Manual 08/09/2008 [facility] White Blood 7.0 CUMM 4.8-10.[address] [place] [address] [phone] Red Cell Count 4.35 CUMM 4.2-5.4 Hemoglobin 13.0 g/dL 12.0-16.0 Hematocrit 38 % 35-47 Mean Corpuscular Volume 88 um3 79-97 Mean Corpuscular Hemoglob 30 pg 27-31 Mean Corpuscular HGB Cone 34 g/dL 32-36 Redcell Distribution WDTH 12 % 10.5-15 Platelet Count 250 CUMM 150-450 Mean Platelet Volume 8.8 um3 7.4-10.4 Polysegmented Neutrophil 62 % 38-83 Lymphocyte 32 % 25-47 Monocyte 5 % 0-13 Atypical Lymph 1 % 0-6 Absolute Neutrophil Count 4.3 Anisocytosis SLIGHT Ovalocytes FEW 1 >100 to <200 pg/mL: likely compensated congestive heart failure (CHF) 200 to 400 pg/mL: likely moderate CHF >400 pg/mL: likely moderate to severe CHF 2 FASTING Copy Result to: LORENZA RIOS ([id number]) 3 Because ethnic data is not always readily available, this report includes an eGFR for both -Americans and non- Americans. The National Kidney Disease Education Program (NKDEP) does not endorse the use of the MDRD equation for patients that are not between the ages of 18 and 70, are , have extremes of body size, muscle mass, or nutritional status, or are non- or non-. According to the National Kidney Foundation, irrespective of diagnosis, the stage of the disease is based on the level of kidney function: Stage Description GFR(mL/min/1.73 m(2)) 1 Kidney damage with normal or decreased GFR 90 2 Kidney damage with mild decrease in GFR 60-89 3 Moderate decrease in GFR 30-59 4 Severe decrease in GFR 15-29 5 Kidney failure <15 (or dialysis) 4 Desirable: <150 Borderline High: 150-199 High: 200-499 Very High: >500 5 Desirable: <200 Borderline High: 200-239 High: >239 6 Low: <40 Desirable: 40-60 High: >60 7 Desirable: <100 Near Optimal: 100-129 Borderline High: 130-159 High: 160-189 Very High: >189 8 Because ethnic data is not always readily available, this report includes an eGFR for both -Americans and non- Americans. The National Kidney Disease Education Program (NKDEP) does not endorse the use of the MDRD equation for patients that are not between the ages of 18 and 70, are , have extremes of body size, muscle mass, or nutritional status, or are non- or non-. According to the National Kidney Foundation, irrespective of diagnosis, the stage of the disease is based on the level of kidney function: Stage Description GFR(mL/min/1.73 m(2)) 1 Kidney damage with normal or decreased GFR 90 2 Kidney damage with mild decrease in GFR 60-89 3 Moderate decrease in GFR 30-59 4 Severe decrease in GFR 15-29 5 Kidney failure <15 (or dialysis) 9 Desirable <150 Borderline high 150-199 High 200-499 Very High >500 10 Desirable <200 Borderline high 200-239 High >239 11 Low <40 Desirable: 40-60 High: >60 12 Desirable: <100 mg/dL Near Optimal: 100-129 mg/dL Borderline High: 130-159 mg/dL High: 160-189 mg/dL Very High: >189 mg/dL 13 Because ethnic data is not always readily available, this report includes an eGFR for both -Americans and non- Americans. The National Kidney Disease Education Program (NKDEP) does not endorse the use of the MDRD equation for patients that are not between the ages of 18 and 70, are , have extremes of body size, muscle mass, or nutritional status, or are non- or non-. According to the National Kidney Foundation, irrespective of diagnosis, the stage of the disease is based on the level of kidney function: Stage Description GFR(mL/min/1.73 m(2)) 1 Kidney damage with normal or decreased GFR 90 2 Kidney damage with mild decrease in GFR 60-89 3 Moderate decrease in GFR 30-59 4 Severe decrease in GFR 15-29 5 Kidney failure <15 (or dialysis) 14 Because ethnic data is not always readily available, this report includes an eGFR for both -Americans and non- Americans. The National Kidney Disease Education Program (NKDEP) does not endorse the use of the MDRD equation for patients that are not between the ages of 18 and 70, are , have extremes of body size, muscle mass, or nutritional status, or are non- or non-. According to the National Kidney Foundation, irrespective of diagnosis, the stage of the disease is based on the level of kidney function: Stage Description GFR(mL/min/1.73 m(2)) 1 Kidney damage with normal or decreased GFR 90 2 Kidney damage with mild decrease in GFR 60-89 3 Moderate decrease in GFR 30-59 4 Severe decrease in GFR 15-29 5 Kidney failure <15 (or dialysis) 15 Desirable <150 Borderline high 150-199 High 200-499 Very High >500 16 Desirable <200 Borderline high 200-239 High >239 17 Low <40 Desirable: 40-60 High: >60 18 Desirable: <100 mg/dL Near Optimal: 100-129 mg/dL Borderline High: 130-159 mg/dL High: 160-189 mg/dL Very High: >189 mg/dL 19 fsting cc pmd 20 Because ethnic data is not always readily available, this report includes an eGFR for both -Americans and non- Americans. The National Kidney Disease Education Program (NKDEP) does not endorse the use of the MDRD equation for patients that are not between the ages of 18 and 70, are , have extremes of body size, muscle mass, or nutritional status, or are non- or non-. According to the National Kidney Foundation, irrespective of diagnosis, the stage of the disease is based on the level of kidney function: Stage Description GFR(mL/min/1.73 m(2)) 1 Kidney damage with normal or decreased GFR 90 2 Kidney damage with mild decrease in GFR 60-89 3 Moderate decrease in GFR 30-59 4 Severe decrease in GFR 15-29 5 Kidney failure <15 (or dialysis) 21 Desirable <150 Borderline high 150-199 High 200-499 Very High >500 22 Desirable <200 Borderline high 200-239 High >239 23 Low <40 Desirable: 40-60 High: >60 24 Desirable: <100 mg/dL Near Optimal: 100-129 mg/dL Borderline High: 130-159 mg/dL High: 160-189 mg/dL Very High: >189 mg/dL [facility] 26 Because ethnic data is not always readily available, this report includes an eGFR for both -Americans and non- Americans. The National Kidney Disease Education Program (NKDEP) does not endorse the use of the MDRD equation for patients that are not between the ages of 18 and 70, are , have extremes of body size, muscle mass, or nutritional status, or are non- or non-. According to the National Kidney Foundation, irrespective of diagnosis, the stage of the disease is based on the level of kidney function: Stage Description GFR(mL/min/1.73 m(2)) 1 Kidney damage with normal or decreased GFR 90 2 Kidney damage with mild decrease in GFR 60-89 3 Moderate decrease in GFR 30-59 4 Severe decrease in GFR 15-29 5 Kidney failure <15 (or dialysis) 27 PT IS FASTING 28 Because ethnic data is not always readily available, this report includes an eGFR for both -Americans and non- Americans. The National Kidney Disease Education Program (NKDEP) does not endorse the use of the MDRD equation for patients that are not between the ages of 18 and 70, are , have extremes of body size, muscle mass, or nutritional status, or are non- or non-. According to the National Kidney Foundation, irrespective of diagnosis, the stage of the disease is based on the level of kidney function: Stage Description GFR(mL/min/1.73 m(2)) 1 Kidney damage with normal or decreased GFR 90 2 Kidney damage with mild decrease in GFR 60-89 3 Moderate decrease in GFR 30-59 4 Severe decrease in GFR 15-29 5 Kidney failure <15 (or dialysis) 29 PT IS FASTING 30 Desirable <150 Borderline high 150-199 High 200-499 Very High >500 31 Desirable <200 Borderline high 200-239 High >239 32 Low <40 Desirable: 40-60 High: >60 33 Desirable <100 Near Optimal 100-129 Borderline high 130-159 High 160-189 Very High >189 34 PT IS FASTING 35 HDL Interpretation: Undesirable: High Risk: Less than 40 MG/DL Desirable: Low Risk: Greater than 60 MG/DL 36 LDL Interpretation: Low Risk Optimal Level: LDL Less than 100 MG/DL Near or Above Optimal: LDL 100-129 MG/DL Borderline High Risk: LDL 130-159 MG/DL High Risk: LDL 160-189 MG/DL Very High Risk: LDL Greater than 189 MG/DL 37 Because ethnic data is not always readily available, this report includes an eGFR for both -Americans and non- Americans. The National Kidney Disease Education Program (NKDEP) does not endorse the use of the MDRD equation for patients that are not between the ages of 18 and 70, are , have extremes of body size, muscle mass, or nutritional status, or are non- or non-. According to the National Kidney Foundation, irrespective of diagnosis, the stage of the disease is based on the level of kidney function: Stage Description GFR(mL/min/1.73 m(2)) 1 Kidney damage with normal or decreased GFR 90 2 Kidney damage with mild decrease in GFR 60-89 3 Moderate decrease in GFR 30-59 4 Severe decrease in GFR 15-29 5 Kidney failure <15 (or dialysis) 38 CHOLESTEROL INTERPRETATION: Desirable: Less than 200 MG/DL Borderline-High Risk: 200-239 MG/DL High-Risk: 240 MG/DL and over 39 HDL INTERPRETATION: Undesirable: High Risk: Less than 40 MG/DL Desirable: Low Risk: Greater than 60 MG/DL 40 LDL INTERPRETATION: Low Risk Optimal Level: LDL Less than 100 MG/DL Near or Above Optimal: LDL 100-129 MG/DL Borderline High Risk: LDL 130-159 MG/DL High Risk: LDL 160-189 MG/DL Very High Risk: LDL Greater than 189 MG/DL 41 Anion gap measurement may be of limited value in the presence of any alkalosis, especially in a combined acid base disorder. . 42 A metabolite of Naproxen, O-desmethylnaproxen, has been shown to interfere with the [place] method for measuring total bilirubin. Samples from patients who have taken Naproxen have shown spurious elevation in total bilirubin levels. 43 Because ethnic data is not always readily available, this report includes an eGFR for both -Americans and non- Americans. The National Kidney Disease Education Program (NKDEP) does not endorse the use of the MDRD equation for patients that are not between the ages of 18 and 70, are , have extremes of body size, muscle mass, or nutritional status, or are non- or non-. According to the National Kidney Foundation, irrespective of diagnosis, the stage of the disease is based on the level of kidney function: Stage Description GFR(mL/min/1.73 m(2)) 1 Kidney damage with normal or decreased GFR 90 2 Kidney damage with mild decrease in GFR 60-89 3 Moderate decrease in GFR 30-59 4 Severe decrease in GFR 15-29 5 Kidney failure <15 (or dialysis) 44 Mo Blasts Imm. NE 1 45 Anion gap measurement may be of limited value in the presence of any alkalosis, especially in a combined acid base disorder. . 46 Note change in reference range as of 12/25/07. The change was based on recommendations from the [place] [employer]. 47 Please note change in reference range effective 07 . 48 A metabolite of Naproxen, O-desmethylnaproxen, has been shown to interfere with the [place] method for measuring total bilirubin. Samples from patients who have taken Naproxen have shown spurious elevation in total bilirubin levels. 49 Because ethnic data is not always readily available, this report includes an eGFR for both -Americans and non- Americans. The National Kidney Disease Education Program (NKDEP) does not endorse the use of the MDRD equation for patients that are not between the ages of 18 and 70, are , have extremes of body size, muscle mass, or nutritional status, or are non- or non-. According to the National Kidney Foundation, irrespective of diagnosis, the stage of the disease is based on the level of kidney function: Stage Description GFR(mL/min/1.73 m(2)) 1 Kidney damage with normal or decreased GFR 90 2 Kidney damage with mild decrease in GFR 60-89 3 Moderate decrease in GFR 30-59 4 Severe decrease in GFR 15-29 5 Kidney failure <15 (or dialysis) 50 New Reference Range and Interpretation effective 02/06/2002 TnI (ng/ml) INTERPRETATION Less Than 0.06 ng/mL NOT SUPPORTIVE OF DIAGNOSIS OF [place] 0.06 - 0.50 ng/ml INDETERMINATE: SUGGEST SERIAL STUDIES IF CLINICALLY INDICATED. Greater than 0.5 ng/mL CONSISTENT WITH DIAGNOSIS OF [place] . 51 Recommended INR for Patients on Oral Anticoagulants Prophylaxis 2.0 - 3.0 Treatment of thrombosis 2.0 - 3.0 Prevention of embolism 2.0 - 3.0 Prevention of embolism from prosthetic heart valves 2.5 - 3.5 52 DIAGNOSIS,TREATMENT,AND THERAPY MUST BE BASED ON THE INR VALUE ALONE. 53 PLEASE NOTE NEW REFERENCE RANGE EFFECTIVE 08. 54 Anion gap measurement may be of limited value in the presence of any alkalosis, especially in a combined acid base disorder. . 55 Note change in reference range as of 12/25/07. The change was based on recommendations from the [employer]. 56 Please note change in reference range effective 07 . 57 A metabolite of Naproxen, O-desmethylnaproxen, has been shown to interfere with the [place] method for measuring total bilirubin. Samples from patients who have taken Naproxen have shown spurious elevation in total bilirubin levels. 58 Because ethnic data is not always readily available, this report includes an eGFR for both -Americans and non- Americans. The National Kidney Disease Education Program (NKDEP) does not endorse the use of the MDRD equation for patients that are not between the ages of 18 and 70, are , have extremes of body size, muscle mass, or nutritional status, or are non- or non-. According to the National Kidney Foundation, irrespective of diagnosis, the stage of the disease is based on the level of kidney function: Stage Description GFR(mL/min/1.73 m(2)) 1 Kidney damage with normal or decreased GFR 90 2 Kidney damage with mild decrease in GFR 60-89 3 Moderate decrease in GFR 30-59 4 Severe decrease in GFR 15-29 5 Kidney failure <15 (or dialysis) 59 CHOLESTEROL INTERPRETATION: Desirable: Less than 200 MG/DL Borderline-High Risk: 200-239 MG/DL High-Risk: 240 MG/DL and over 60 HDL INTERPRETATION: Undesirable: High Risk: Less than 40 MG/DL Desirable: Low Risk: Greater than 60 MG/DL 61 LDL INTERPRETATION: Low Risk Optimal Level: LDL Less than 100 MG/DL Near or Above Optimal: LDL 100-129 MG/DL Borderline High Risk: LDL 130-159 MG/DL High Risk: LDL 160-189 MG/DL Very High Risk: LDL Greater than 189 MG/DL 62 Anion gap measurement may be of limited value in the presence of any alkalosis, especially in a combined acid base disorder. . 63 Note change in reference range as of 12/25/07. The change was based on recommendations from the [employer]. 64 Please note change in reference range effective 07 . 65 Because ethnic data is not always readily available, this report includes an eGFR for both -Americans and non- Americans. The National Kidney Disease Education Program (NKDEP) does not endorse the use of the MDRD equation for patients that are not between the ages of 18 and 70, are , have extremes of body size, muscle mass, or nutritional status, or are non- or non-. According to the National Kidney Foundation, irrespective of diagnosis, the stage of the disease is based on the level of kidney function: Stage Description GFR(mL/min/1.73 m(2)) 1 Kidney damage with normal or decreased GFR 90 2 Kidney damage with mild decrease in GFR 60-89 3 Moderate decrease in GFR 30-59 4 Severe decrease in GFR 15-29 5 Kidney failure <15 (or dialysis) 66 NON FASTING 67 Anion gap measurement may be of limited value in the presence of any alkalosis, especially in a combined acid base disorder. . 68 Note change in reference range as of 12/25/07. The change was based on recommendations from the [employer]. 69 Please note change in reference range effective 07 . 70 Anion gap measurement may be of limited value in the presence of any alkalosis, especially in a combined acid base disorder. . 71 Note change in reference range as of 12/25/07. The change was based on recommendations from the [employer]. 72 Please note change in reference range effective 07 . 73 CHOLESTEROL INTERPRETATION: Desirable: Less than 200 MG/DL Borderline-High Risk: 200-239 MG/DL High-Risk: 240 MG/DL and over 74 HDL INTERPRETATION: Undesirable: High Risk: Less than 40 MG/DL Desirable: Low Risk: Greater than 60 MG/DL 75 LDL INTERPRETATION: Low Risk Optimal Level: LDL Less than 100 MG/DL Near or Above Optimal: LDL 100-129 MG/DL Borderline High Risk: LDL 130-159 MG/DL High Risk: LDL 160-189 MG/DL Very High Risk: LDL Greater than 189 MG/DL Procedures Date Code Description Status 04/07/2018 51178 EKG Tracing & Interpretation Completed 07/15/2017 89352 EKG Tracing & Interpretation Completed 02/18/2017 31556 EKG Tracing & Interpretation Completed 11/26/2016 75961 Stress Test Completed 11/26/2016 73960 Myocardial Perfusion Imaging Tomographic (Spect) Multiple Completed Studies 11/22/2016 20710 Holter Monitor Review (24 hr)dr review & interp only Completed 2016 92469 ECG Monitor/Recording W/Visual Superimposition Scanning Completed 2016 46004 ECG Monitor/Recording W/Visual Superimposition Scanning Completed 11/13/2016 75791 ECHO Transthoracic, Real-Time 2D With Doppler And Color Completed Flow 10/23/2016 03846 EKG Tracing & Interpretation Completed 10/23/2016 88244 EKG Tracing & Interpretation Completed 09/18/2016 31838 EKG Tracing & Interpretation Completed 12/27/2015 76852 Stress Test Completed 12/27/2015 03185 Myocardial Perfusion Imaging Tomographic (Spect) Multiple Completed Studies 12/06/2015 02100 EKG Tracing & Interpretation Completed 10/12/2014 65970 EKG Tracing & Interpretation Completed 06/08/2013 55635 EKG Tracing & Interpretation Completed 03/02/2013 97784 ECHO Transthorasic Realtime 2D W Doppler & Color Flow Hosp Completed 09/02/2012 44278 Stress Test Supervsn W/Out I/R Completed 09/02/2012 28804 Treadmill Interp/Report Only Completed 07/30/2012 98242 ECHO Stress Test Incl Perf Contiuous ekg Monitoring W/Phys Completed Superv 07/30/2012 96250 ECHO Stress Test Incl Perf Contiuous ekg Monitoring W/Phys Completed Superv 05/29/2012 15142 EKG Tracing & Interpretation Completed 07/19/2011 78918 EKG Tracing & Interpretation Completed 12/07/2010 87495 EKG Tracing & Interpretation Completed 01/16/2010 65132 Treadmill Interp/Report Only Completed 01/16/2010 43011 Stress Test Supervsn W/Out I/R Completed 01/12/2010 56968 EKG Tracing & Interpretation Completed 02/11/2009 22163 EKG Tracing & Interpretation Completed 08/17/2008 74791 Stress ECHO Interpretation/Report Hospital Completed 08/17/2008 63017 Treadmill Interp/Report Only Completed 08/17/2008 39006 Stress Test Supervsn W/Out I/R Completed 07/28/2008 58905 ECHO Stress Test Incl Perf Contiuous ekg Monitoring W/Phys Completed Superv 06/11/2008 09744 EKG Tracing & Interpretation Completed 07/03/2005 79300 Treadmill Interp/Report Only Completed 07/03/2005 48914 Stress Test Supervsn W/Out I/R Completed Encounters Type Date Location Provider Dx Diagnosis Office Visit 07/15/2017 [facility] Kris Quiles I10 Essential ( primary) 11:20a Dilip Stoo hypertension 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00 Pure hypercholesterolemia, unspecified Office Visit 10/23/2016 11:00a [facility] Ayana Miller I10 Essential (primary) Of Complaint Supervisor PA hypertension 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 R42 Dizziness and giddiness R07.9 Chest pain, unspecified Office Visit 09/18/2016 11:20a [facility] Kris Quiles I10 Essential (primary) Dilip Soto hypertension 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 E78.00 Pure hypercholesterolemia, unspecified R25.2 Cramp and spasm Office Visit 01/16/2016 1:30p [facility] Ayana Miller, I10 Essential (primary) Of Complaint Supervisor PA hypertension 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 E78.0 Pure hypercholesterolemia Office Visit 12/30/2015 8:15a [facility] Ayana Miller, I10 Essential (primary) Of Complaint Supervisor PA hypertension 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 Vomiting Hospitalists Office Visit 03/03/2013 [facility] Rachel Hernandez 415.19 Pulmonary 9:28p modest[place] Birch M.D. Embolism And Hospitalists Infarction Other 401.9 Hypertension Unspec 414.01 Coronary Atherosclerosis [place] 493.90 Asthma Unspec W/O Status Asthmaticus Office Visit 03/02/2013 [facility] Rachel 415.19 Pulmonary Embolism 9:27p [place] page M.D. 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 414.01 Coronary 10:24a Cardiology Dilip Ware Atherosclerosis [place] 786.50 Pain Chest Unspec 786.05 Shortness Of Breath 415.19 Pulmonary Embolism And Infarction Other Office Visit 09/02/2012 10:30a [facility] Kris Quiles 786.50 Pain Chest Dilip Soto Unspec 272.0 Hypercholesterolemia Pure 401.1 Hypertension Benign Office 05/29/2012 [place] Kris Quiles 272.0 Hypercholesterolemia Pure Visit 9:00a Cardiology Dilip Soto 414.01 Coronary Atherosclerosis [place] 401.1 Hypertension Benign Office 07/19/2011 [place] Kris Quiles 272.0 Hypercholesterolemia Pure Visit 3:00p Cardiology Dilip Soto 414.01 Coronary Atherosclerosis [place] 401.1 Hypertension Benign Office Visit 12/22/2010 8:15a [facility] Nurse Visit cc 401.0 Hypertension Malignant Office Visit 12/07/2010 3:00p [facility] Kris Quiles 412 Myocardial Dilip Soto Infarction Old 414.01 Coronary Atherosclerosis [place] 272.0 Hypercholesterolemia Pure 401.0 Hypertension Malignant Office Visit 01/12/2010 11:00a [facility] Kris Quiles 412 Myocardial Dilip Soto Infarction Old 414.01 Coronary Atherosclerosis [place] 786.50 Pain Chest Unspec 272.0 Hypercholesterolemia Pure 719.7 Difficulty Walking Office Visit 02/11/2009 11:20a [facility] Kris Quiles 412 Myocardial Dilip Soto Infarction Old 414.01 Coronary Atherosclerosis [place] Office Visit 06/11/2008 9:40a [facility] Kris Quiles 719.7 Difficulty Dilip Soto Walking 272.0 Hypercholesterolemia Pure 414.01 Coronary Atherosclerosis [place] Office Visit 11/14/2006 9:00a Neurosurgery Mohit Aburto 729.1 Myalgia & Services Of Judie Ceja M.D. Myositis Unspec Plan of Treatment 04/07/2018 - Kris Soto M.D.I10 Essential (primary) sobidhwukohkE79.10 Atherosclerotic heart disease of grindstone coronary artery withFollow up:ov 9 mE78.00 Pure hypercholesterolemia, unspecified
--- NOTE | 2018-04-09 10:50 | UC ---
Respiratory Complaint HPI - HPI Summary HPI Summary: 67 y/o female presents to the urgent care c/o URI symptoms since Thanksgiving w/ o any improvement. Now w/ wheezing and productive cough w/ yellowish phlegm and mild SOB. Pt reports Hx of COPD Pt has been using her inhaler w/o any improvement. Pt also has nasal congestion and yellowish discharge w/ +PND and MURRELL. Pt denies fever, chest pain, dizziness, abdominal pain, N/V/D. - History of Current Complaint Chief Complaint: UCRespiratory Stated Complaint: COUGH Time Seen by Provider: 04/09/18 10:28 Hx Obtained From: Patient Onset/Duration: Gradual Onset, Lasting Weeks - 2 weeks, Still Present, Worse Since - 3 days Timing: Intermittent Episodes Severity Initially: Mild Severity Currently: Moderate Pain Intensity: 4 Pain Scale Used: 0-10 Numeric Character: Cough: Productive, Sputum Description: - yellowish Aggravating Factors: Recumbent Position Alleviating Factors: OTC Meds Associated Signs And Symptoms: Positive: Fever - at times during the night, Chills, Wheezing, URI, Nasal Congestion, Sinus Discomfort - Risk Factors Pulmonary Embolism Risk Factors: Negative Cardiac Risk Factors: Negative Pseudomonas Risk Factors: Negative Tuberculosis Risk Factors: Negative - Allergies/Home Medications Allergies/Adverse Reactions: Allergies Allergy/AdvReac Type Severity Reaction Status Date / Time alcohol Allergy Unknown Verified 04/09/18 10:19 Reaction Details Iodinated Contrast- Oral and Allergy Shortness Verified 04/09/18 10:19 IV Dye of Breath shellfish derived Allergy Rash Verified 04/09/18 10:19 Home Medications: Home Medications Fluticasone-Salmeterol 100-50* [Advair Diskus 100-50*] 1 puff BOTH EARS DAILY [History Confirmed 04/09/18] PMH/Surg Hx/FS Hx/Imm Hx Previously Healthy: Yes Endocrine History: Hypothyroidism, Dyslipidemia Cardiovascular History: Hypertension Respiratory History: COPD, Asthma Other Respiratory History: TB as a child which completely resolve w/ treatment - Surgical History Surgical History: Yes Surgery Procedure, Year, and Place: hysterectomy. partial thyroidectomy. right shoulder surgery. [facility]. cardiac stent - Family History Known Family History: Positive: Cardiac Disease, Hypertension - Social History Occupation: Employed Full-time Lives: With Family Alcohol Use: None Substance Use Type: None Smoking Status (MU): Never Smoked Tobacco Household Exposure Type: Cigarettes - Immunization History Most Recent Influenza Vaccination: unk Most Recent Tetanus Shot: unk Most Recent Pneumonia Vaccination: unk Review of Systems All Other Systems Reviewed And Are Negative: Yes Constitutional: Positive: Fever - at night time, Fatigue Skin: Positive: Negative Eyes: Positive: Negative ENT: Positive: Nasal Discharge - yellowish, Sinus Congestion, Sinus Pain/ Tenderness, Other - +PND Respiratory: Positive: Cough - productive w/ yellowish phlegm, Other - wheezing Cardiovascular: Positive: Negative Gastrointestinal: Positive: Negative Genitourinary: Positive: Negative Motor: Positive: Negative Neurovascular: Positive: Negative Musculoskeletal: Positive: Negative Neurological: Positive: Negative Psychological: Positive: Negative Is Patient Immunocompromised?: No Physical Exam - Summary Physical Exam Summary: Vital Signs Reviewed: Yes General: well developed, well nourished female sitting in the examining table w/ o any apparent distress Eyes: Positive: Conjunctiva Clear - PERRLA, EOMI, fundi grossly normal ENT: Positive: Normal ENT inspection, Hearing grossly normal, Pharynx normal, Nasal congestion - edematous and erythematous nasal mucosa, Nasal drainage - yellowish drainage, TMs normal. Negative: Tonsillar swelling, Tonsillar exudate Neck: Positive: Supple, Nontender, No Lymphadenopathy Respiratory: no orthopnea or dyspnea. Able to speak in full sentences, no retractions or accessory muscle use, no tripod position, stridor, or head bobbing. Positive breath sounds bilaterally. diffuse scattered wheezing and rhonchi on b/L lungs, no crackles or rales. Cardiovascular: Positive: RRR, No Murmur, Pulses Normal, Brisk Capillary Refill Abdomen Description: Positive: Nontender, No Organomegaly, Soft. Negative: CVA Tenderness (R), CVA Tenderness (L) Bowel Sounds: Positive: Present Musculoskeletal Exam: Normal Musculoskeletal: Positive: Strength Intact, ROM Intact, No Edema Neurological Exam: Normal Psychological Exam: Normal Skin Exam: Normal Triage Information Reviewed: Yes Vital Signs: Initial Vital Signs Temp 98.8 F 04/09/18 10:16 Pulse 84 04/09/18 10:16 Resp 16 04/09/18 10:16 BP 141/85 04/09/18 10:16 Pulse Ox 97 04/09/18 10:16 Diagnostic Evaluation - Laboratory O2 Sat by Pulse Oximetry: 97 Respiratory Course/Dx - Course Course Of Treatment: 67 y/o female presents to the urgent care c/o URI symptoms since Thanksgiving w/o any improvement. Now w/ wheezing and productive cough w/ yellowish phlegm and mild SOB. Pt reports Hx of COPD. Pt has been using her inhaler w/o any improvement. Pt also has nasal congestion and yellowish discharge w/ +PND and MURRELL. Pt denies fever, chest pain, dizziness, abdominal pain , N/V/D. Hx obtained. Hx obtained. Pt w/ B/L lungs scattered wheezing and rhonchi on examination. O2Sat:97%. Pt probably w/ a COPD exacerbation. Chest X- ray ordered: impression: findings of COPD, no acute cardiopulmonary disease observed. Pt given at the clinic Prednisone 60 mg PO and Duoneb treatment. Pt tolerated well medications and her lungs improved. Pt states feeling better. Pt will be tx w/ Rx Doxycycline PO , Prednisone taper dose and Tessalon tabs PO. Strongly advised to f/u with her PCP for further management. She also has elevated BP today, advised to decrease salt in her diet and monitor BP, if it continues to be elevated to f/u with her PCP. Pt's BP is elevated today advised to decrease salt in diet, monitor BP and f/u with PCP for further management. Pt understood and agreed with D/C instructions and left the clinic hemodynamically stable. - Differential Dx/Diagnosis Differential Diagnosis/HQI/PQRI: Asthma, Bronchitis, Influenza, Lower Resp Infection, Tuberculosis, Other - pneumonia, asthma exacerbation Provider Diagnosis: COPD (chronic obstructive pulmonary disease) with acute bronchitis, Uncontrolled hypertension Discharge - Sign-Out/Discharge Documenting (check all that apply): Patient Departure - d/c home All imaging exams completed and their final reports reviewed: Yes - Discharge Plan Condition: Stable Disposition: HOME Prescriptions: Benzonatate CAP* [Tessalon 100 MG CAP*] 100 mg PO TID #21 cap DOXYcycline CAP(*) [DOXYcycline 100MG CAP(*)] 100 mg PO BID #10 cap predniSONE TAB* [Deltasone 20 MG TAB*] 20 mg PO DAILY #8 tab Patient Education Materials: COPD (Chronic Obstructive Pulmonary Disease) (ED) , Low-Sodium Diet (ED), Wheezing (ED) Forms: *Work Release Referrals: Jesika Rios MD [Primary Care Provider] - 2 Days Additional Instructions: 1-Please take full course of antibiotic to avoid resistance. 2-Take Tessalon PO tabs as directed and use the albuterol inhaler w/ aerochamber to alleviate cough. Increase fluid intake, rest and eat well. 3- If symptoms do not improve or worsen or your develop SOB with fever and severe wheezing please go immediately to the ER further evaluation and treatment. 4- F/u with your PCP in 2-3 days for further management on your COPD 5- Your BP is elevated today. please decrease salt in your diet, monitor BP and if it continues to be elevated please f/u with your PCP for further management - Billing Disposition and Condition Condition: STABLE Disposition: Home
[2018-04-09] MEDS ORDERED: predniSONE TAB* 20 MG PO ONE (10:57)
[2018-04-09] MEDS ORDERED: Albuterol/Ipratropium NEB.SOL* Albuterol 2.5 MG/Ipratropium 0.5 MG 3 ML INH ONE (10:58)
[2018-04-09 12:17] VITALS: BP 156/86
== END 2018-04-09 12:17 | disposition home or self-care (01) ==
LOC: UCEAST 10:02
DX: J45.901 Unspecified asthma with (acute) exacerbation (principal); Z91.041 Radiographic dye allergy status; Z91.013 Allergy to seafood
CPT/HCPCS: 71046; 99213; A9270-GY; G0463; J7512

== ENCOUNTER 2018-04-28 11:51 | Emergency (ER) | payer MEDICARE, BC ==
--- NOTE | 2018-04-28 12:26 | ED ---
Shortness of Breath - HPI Summary HPI Summary: This patient is a 57 year old F presenting to [facility] accompanied by a family member with a chief complaint of SOB for the last four weeks. She was seen at 3 weeks ago and dx with bronchitis and given abx and medication. She states since then she has had the persistent dry cough even with the meds and it is beginning to cause rib pain on the left that radiates into her back this began a few days ago. The patient rates the pain 9/10 in severity. She has had some relief with her inhaler. Patient reports one episode of emesis this morning and believes it was due to phlegm in her throat. She also states she developed a fever last night. Pt c/o intermittent LE weakness and intermittent rhinorrhea. Patient denies LE edema, calf pain, and CP. Hx HTN, asthma, and [place]. NKDA - History of Current Complaint Chief Complaint: EDShortnessOfBreath Time Seen by Provider: 04/28/18 12:14 Hx Obtained From: Patient Onset/Duration: Lasting Weeks - r, Still Present Timing: Constant Current Severity: Moderate Dyspnea At: Exertion Associated Signs & Symptoms: Cough (Nonproductive), Fever - subjective - Allergy/Home Medications Allergies/Adverse Reactions: Allergies Allergy/AdvReac Type Severity Reaction Status Date / Time alcohol Allergy Unknown Verified 04/28/18 12:20 Reaction Details Iodinated Contrast- Oral and Allergy Shortness Verified 04/28/18 12:20 IV Dye of Breath shellfish derived Allergy Rash Verified 04/28/18 12:20 PMH/Surg Hx/FS Hx/Imm Hx Endocrine/Hematology History: Denies: Hx Diabetes, Hx Thyroid Disease Cardiovascular History: Reports: Hx Angina, Hx Coronary Artery Disease - stent 2005, Hx Hypercholesterolemia, Hx Hypertension - TREATED, Hx Myocardial Infarction Denies: Hx Congestive Heart Failure, Hx Pacemaker/ICD, Other Cardiovascular Problems/Disorders Respiratory History: Reports: Hx Asthma - TREATED, Hx Pneumonia, Hx Pulmonary Edema - current Denies: Hx Chronic Obstructive Pulmonary Disease (COPD), Other Respiratory Problems/Disorders GI History: Denies: Hx Ulcer Musculoskeletal History: Reports: Hx Arthritis Sensory History: Reports: Hx Contacts or Glasses Denies: Hx Cataracts Opthamlomology History: Reports: Hx Contacts or Glasses Denies: Hx Cataracts - Surgical History Surgery Procedure, Year, and Place: hysterectomy. partial thyroidectomy. right shoulder surgery. [facility]. cardiac stent - Immunization History Date of Tetanus Vaccine: Unk Date of Influenza Vaccine: None for 2012 Infectious Disease History: No Infectious Disease History: Denies: Hx Clostridium Difficile, Hx Hepatitis, Hx Human Immunodeficiency Virus (HIV), Hx of Known/Suspected MRSA, Hx Shingles, Hx Tuberculosis, History Other Infectious Disease, Traveled Outside the [place] in Last 30 Days - Family History Known Family History: Positive: Cardiac Disease, Hypertension - Social History Alcohol Use: None Substance Use Type: Reports: None Hx Tobacco Use: No Smoking Status (MU): Never Smoked Tobacco Review of Systems Positive: Fever - subjective Positive: Nasal Discharge Negative: Chest Pain Positive: Shortness Of Breath, Cough Positive: Vomiting - 1 episode Musculoskeletal: Negative - calf pain , Other - rib pain Negative: Edema Positive: Weakness All Other Systems Reviewed And Are Negative: Yes Physical Exam - Summary Physical Exam Summary: General: mildly ill -appearing, no pain distress Skin: warm, color reflects adequate perfusion, dry Head: normal Eyes: EOMI, LOTUS ENT: normal Neck: supple, nontender Respiratory: bilateral wheezing Cardiovascular: RRR Abdomen: soft, nontender Bowel: present Musculoskeletal: normal, strength/ROM intact Neurological: sensory/motor intact, A&O x3 Psychological: affect/mood appropriate Triage Information Reviewed: Yes Vital Signs On Initial Exam: Initial Vitals Temp Pulse Resp BP Pulse Ox 97.3 F 87 18 146/76 97 04/28/18 12:06 04/28/18 12:06 04/28/18 12:06 04/28/18 12:06 04/28/18 12:06 Vital Signs Reviewed: Yes Diagnostics - Vital Signs Vital Signs Temp Pulse Resp BP Pulse Ox 04/28/18 12:06 97.3 F 87 18 146/76 97 - Laboratory Result Diagrams: 04/28/18 12:54 04/28/18 12:54 Lab Statement: Any lab studies that have been ordered have been reviewed, and results considered in the medical decision making process. - Radiology CXR Radiology Interpretation Completed By: Radiologist Summary of Radiographic Findings: No acute process superimposed on findings of chronic obstructive pulmonary disease and. emphysema with chronic LEFT suprahilar scarring and relative LEFT hemithorax volume loss. ED physician has reviewed this radiology report. - EKG 1237 Cardiac Rate: NL EKG Rhythm: Sinus Rhythm - at 89 BPM Ectopy: None Summary of EKG Findings: borderline T wave abnormalities 1425 Cardiac Rate: Tachycardia EKG Rhythm: Sinus Tachycardia - at 105 BPM Ectopy: None Summary of EKG Findings: borderline T wave abnormalities Course/Dx - Course Course Of Treatment: After the second DuoNeb and Solu-Medrol patient's breathing improved. We ambulated the patient and she was tachycardic. We discussed admission versus outpatient treatment. Patient has a follow-up scheduled for April 30, 2018. Patient prefers to go home at this time. She is to return to the emergency department for any worsening conditions or questions or concerns. - Diagnoses Provider Diagnoses: Bronchitis, COPD (chronic obstructive pulmonary disease) Discharge - Sign-Out/Discharge Documenting (check all that apply): Patient Departure - Discharge Plan Condition: Stable Disposition: HOME Prescriptions: Albuterol/Ipratropium NEB.OLLIE* [Duoneb (Albuterol 2.5 MG/Ipratropium 0.5 MG)] 1 neb INH Q4H PRN #30 neb.soln PRN Reason: Shortness Of Breath Amoxicillin/Clavulanate TAB* [Augmentin TAB 875*] 875 mg PO BID #20 tab Azithromycin 250 mg PO DAILY #4 tablet predniSONE TAB* [Deltasone 20 MG TAB*] 40 mg PO DAILY #8 tab Patient Education Materials: Acute Bronchitis (ED), COPD (Chronic Obstructive Pulmonary Disease) (ED) Referrals: Jesika Rios MD [Primary Care Provider] - Additional Instructions: FOLLOW UP WITH YOUR DOCTOR ON 04/30/18 SCHEDULED. GET RECHECKED FOR ANY WORSENING OF YOUR CONDITION; CHEST PAIN, SHORTNESS OF BREATH OR QUESTIONS OR CONCERNS. - Billing Disposition and Condition Condition: STABLE Disposition: Home - Attestation Statements Document Initiated by Stacey: Yes Documenting Scribe: René Gore Provider For Whom Stacey is Documenting (Include Credential): Oneal Dumont MD Scribe Attestation: René Mcclain scribed for Oneal Dumont MD on 04/28/18 at 1545. Scribe Documentation Reviewed: Yes Provider Attestation: The documentation as recorded by the René joseph accurately reflects the service I personally performed and the decisions made by me, Oneal Dumont MD Status of Scribe Document: Viewed
[2018-04-28] MEDS ORDERED: NS 0.9% 1000 ML*IV.FLUID IV ONE (12:27)
[2018-04-28] MEDS ORDERED: cefTRIAXone(*) 1 GM in NS 0.9% 50 ML* 50 ML IVPB ONE (12:30)
[2018-04-28] MEDS ORDERED: methylPREDNISolone 125 MG* 2 ML VIAL IV ONE (12:30)
[2018-04-28] MEDS ORDERED: Albuterol/Ipratropium NEB.SOL* Albuterol 2.5 MG/Ipratropium 0.5 MG 3 ML INH ONE ×2 (12:30→14:09)
[2018-04-28] MEDS ORDERED: Azithromycin IV(*) 500 MG in NS 0.9% 250 ML* 250 ML IVPB ONE (12:30)
[2018-04-28] MEDS ORDERED: cefTRIAXone(*) 1 GM ADVAN/BAG ONE (13:02)
[2018-04-28] MEDS ORDERED: Azithromycin IV* 500 MG ADVAN VIAL/BAG IVPB ONE (13:02)
[2018-04-28 13:04] LABS: ABS Basophils 0 10^3/ul (0-0.2); ABS Eosinophils 0.1 10^3/ul (0-0.6); ABS Lymphocytes 1.2 10^3/ul (1.0-4.8); ABS Monocytes 0.8 10^3/ul (0-0.8); ABS Neutrophils 6.4 10^3/ul (1.5-7.7); ABS Nucleated RBC 0 10^3/ul; Eosinophil % 0.6 %; Hematocrit 39 % (35-47); Hemoglobin 13.1 g/dl (12.0-16.0); Lymphocyte % 14.3 %; Mean Corpuscular HGB Conc 33 g/dl (31-36); Mean Corpuscular Hemoglobin 29 pg (27-31); Mean Corpuscular Volume 86 fL (80-97); Mean Platelet Volume 8.6 fL (7.4-10.4); Nucleated Red Blood Cells % 0; Platelet Count 243 10^3/ul (150-450); Red Blood Count 4.56 10^6/ul (4.00-5.40); Red Cell Distribution Width 13 % (10.5-15); White Blood Count 8.4 10^3/ul (3.5-10.8)
[2018-04-28 13:12] LABS: Activated Partial Thrombo Time 35.4 seconds (26.0-36.3); INR 0.97 (0.77-1.02)
[2018-04-28 13:14] LABS: Urine Appearance Cloudy; Urine Bilirubin Negative (Negative); Urine Blood Negative (Negative); Urine Color Yellow; Urine Glucose Negative (Negative); Urine Ketones Negative (Negative); Urine Nitrite Negative (Negative); Urine Protein Negative (Negative); Urine Specific Gravity 1.021 (1.010-1.030); Urine Urobilinogen Negative (Negative)
[2018-04-28 13:22] LABS: Albumin 4.1 g/dL (3.2-5.2); Albumin/Globulin Ratio 1.2 (1-3); BUN/Creatinine Ratio 12.7 (8-20); C Reactive Protein 34.08 mg/L (<8.01); EGFR Non-African American 72.4 (>60); Globulin 3.3 g/dL (2-4); Potassium 3.4 mmol/L (3.5-5.0); Total Bilirubin 0.5 mg/dL (0.2-1.0); Total Protein 7.4 g/dL (6.4-8.9)
[2018-04-28 15:55] VITALS: BP 117/67
== END 2018-04-28 15:54 | disposition home or self-care (01) ==
LOC: ED 11:51
DX: J44.9 Chronic obstructive pulmonary disease, unspecified (principal); I25.119 Atherosclerotic heart disease of native coronary artery with unspecified angina pectoris; I10 Essential (primary) hypertension; Z95.5 Presence of coronary angioplasty implant and graft; Z91.041 Radiographic dye allergy status; Z91.013 Allergy to seafood; Z91.048 Other nonmedicinal substance allergy status; Z82.49 Family history of ischemic heart disease and other diseases of the circulatory system
CPT/HCPCS: 36415; 71045; 80053; 81003; 82550; 83605; 83880; 84484; 85025; 85379; 85610; 85730; 86140; 87040; 93005; 96365; 96375; 99283; A9270-GY; J0456; J0696; J2930

== ENCOUNTER → 2018-08-26 15:26 | Emergency (ER) | payer MEDICARE, OTHER ==
[~2018-08-26 15:26] MED LIST: HYDROcodone/ACETAMIN 5-325 MG* 1 TAB PO ONE; Lidocaine 1% INJ* 10 MG/ML 30 ML SDV INJ ONE
--- NOTE | 2018-08-26 15:38 | ED ---
Upper Extremity Pain - HPI Summary HPI Summary: Patient is a 67-year-old female presents to the ED after a fall at work. She states she landed on an outstretched hand. She is endorsing pain to the left wrist with a deformity. Denies any ecchymosis, however is endorsing swelling. She denies any numbness or tingling in the fingertips. She denies any other injuries. She is declined pain medication at this time. She denies any other symptoms and denies any other complaints. Patient is on blood thinners. - History of Current Complaint Chief Complaint: EDFall Stated Complaint: FALL/LT WRIST INJURY PER EMS Time Seen by Provider: 08/26/18 15:29 Hx Obtained From: Patient Onset/Duration: Started Hours Ago Timing: Constant Severity Initially: Moderate Severity Currently: Moderate Character: Aching Aggravating Factor(s): Nothing Alleviating Factor(s): Rest, Ice Associated Signs & Symptoms: Negative: Swelling, Redness, Bruising Related History: Dominant Hand Right - Risk Factors Non-Orthopedic Risk Factor: Negative DVT Risk Factors: Negative Septic Arthritis Risk Factor: Negative Compartment Syndrome Risk Factors: Pain - Allergies/Home Medications Allergies/Adverse Reactions: Allergies Allergy/AdvReac Type Severity Reaction Status Date / Time alcohol Allergy Unknown Verified 04/28/18 12:20 Reaction Details Iodinated Contrast- Oral and Allergy Shortness Verified 04/28/18 12:20 IV Dye of Breath shellfish derived Allergy Rash Verified 04/28/18 12:20 PMH/Surg Hx/FS Hx/Imm Hx Previously Healthy: Yes Endocrine/Hematology History: Denies: Hx Diabetes, Hx Thyroid Disease Cardiovascular History: Reports: Hx Angina, Hx Coronary Artery Disease - stent 2005, Hx Hypercholesterolemia, Hx Hypertension - TREATED, Hx Myocardial Infarction Denies: Hx Congestive Heart Failure, Hx Pacemaker/ICD, Other Cardiovascular Problems/Disorders Respiratory History: Reports: Hx Asthma - TREATED, Hx Pneumonia, Hx Pulmonary Edema - current Denies: Hx Chronic Obstructive Pulmonary Disease (COPD), Other Respiratory Problems/Disorders GI History: Denies: Hx Ulcer Musculoskeletal History: Reports: Hx Arthritis Sensory History: Reports: Hx Contacts or Glasses Denies: Hx Cataracts Opthamlomology History: Reports: Hx Contacts or Glasses Denies: Hx Cataracts - Surgical History Surgery Procedure, Year, and Place: hysterectomy. partial thyroidectomy. right shoulder surgery. [facility]. cardiac stent - Immunization History Date of Tetanus Vaccine: Unk Date of Influenza Vaccine: None for 2013 Hx Pertussis Vaccination: No Immunizations Up to Date: Yes Infectious Disease History: No Infectious Disease History: Denies: Hx Clostridium Difficile, Hx Hepatitis, Hx Human Immunodeficiency Virus (HIV), Hx of Known/Suspected MRSA, Hx Shingles, Hx Tuberculosis, History Other Infectious Disease, Traveled Outside the [place] in Last 30 Days - Family History Known Family History: Positive: Cardiac Disease, Hypertension - Social History Occupation: Unemployed Lives: With Family Alcohol Use: None Hx Substance Use: No Substance Use Type: Reports: None Hx Tobacco Use: No Smoking Status (MU): Never Smoked Tobacco Review of Systems Constitutional: Negative Negative: Fever, Chills, Skin Diaphoresis Negative: Palpitations, Chest Pain Negative: Shortness Of Breath, Cough Positive: Arthralgia, Myalgia Skin: Negative Neurological: Negative All Other Systems Reviewed And Are Negative: Yes Physical Exam Triage Information Reviewed: Yes Vital Signs On Initial Exam: Initial Vitals Temp Pulse Resp BP Pulse Ox 98.9 F 89 16 152/80 99 08/26/18 15:33 08/26/18 15:33 08/26/18 15:33 08/26/18 15:33 08/26/18 15:33 Vital Signs Reviewed: Yes Appearance: Positive: Well-Appearing, Well-Nourished Skin: Positive: Warm, Skin Color Reflects Adequate Perfusion Head/Face: Positive: Normal Head/Face Inspection Eyes: Positive: EOMI, Conjunctiva Clear Neck: Positive: Supple, No Lymphadenopathy Respiratory/Lung Sounds: Positive: Clear to Auscultation, Breath Sounds Present Cardiovascular: Positive: RRR, Pulses are Symmetrical in both Upper and Lower Extremities Musculoskeletal: Positive: Pain @ - left wrist Neurological: Positive: Speech Normal Psychiatric: Positive: Affect/Mood Appropriate Diagnostics - Vital Signs Vital Signs Temp Pulse Resp BP Pulse Ox 08/26/18 15:33 98.9 F 89 16 152/80 99 - Laboratory Lab Statement: Any lab studies that have been ordered have been reviewed, and results considered in the medical decision making process. Course/Dx - Course Course Of Treatment: Well as During his course of treatment, the patient is evaluated for left wrist injury. There is a left wrist deformity to the dorsum of the hand and wrist. Denies any nose or tingling. Neurovascularly intact. Radial pulsed intact bilaterally. X-ray obtained. Dorsally angulated fracture of the distal radial metaphysis with minimally displaced fracture of the styloid process of the ulna. Hematoma block placed. Attempted to reduce the radius. Patient tolerated well. U slab placed. NV intact. Image obtained. Persistently angulated fx. Discussed with Dr. Astudillo. Will see in office on . Pain medications given. - Diagnoses Differential Diagnosis/HQI/PQRI: Positive: Fracture (Open), Fracture (Closed), Strain, Sprain Provider Diagnoses: Fracture, radius - Physician Notifications Discussed Care of Patient With: Sigifredo Astudillo Discharge - Sign-Out/Discharge Documenting (check all that apply): Patient Departure Patient Received Moderate/Deep Sedation with Procedure: No - Discharge Plan Condition: Stable Disposition: HOME Prescriptions: HYDROcodone/ACETAMIN 5-325 MG* [[place] 5-325 TAB*] 1 tab PO Q6H PRN #16 tab MDD 4 PRN Reason: Pain HYDROcodone/ACETAMIN 5-325 MG* [[place] 5-325 TAB*] 1 tab PO Q6H PRN #16 tab MDD 4 PRN Reason: Pain Patient Education Materials: Wrist Fracture in Adults (ED) Referrals: Sigifredo Astudillo MD [Medical Doctor] - Jesika Rios MD [Primary Care Provider] - Additional Instructions: Follow up with Dr. Astudillo on . Please call office tomorrow to make an appt for Hydrocodone up to every 6 hours as needed for pain Ibuprofen may also be used for pain Do not take tylenol while taking the hydrocodone medication Keep the splint in place and sling applied Do not get wet - Billing Disposition and Condition Condition: STABLE Disposition: Home
[2018-08-26 18:54] VITALS: BP 138/68
== END | disposition home or self-care (01) ==
LOC: ED 15:26
DX: M25.532 Pain in left wrist (principal)
CPT/HCPCS: 96374; 99282

== ENCOUNTER → 2018-09-03 10:31 | Day surgery (SDC) | payer BC, MEDICARE, OTHER ==
[~2018-09-03 10:31] MED LIST changes: +Acetaminophen TAB* 325 MG ONE; +Acetaminophen TAB* 325 MG PO PRN; +Buffered Lidocaine 1% SYRIN* 1 ML/SYRINGE INTRADERM ONE; +Bupivacaine 0.5% W/EPI SDV* 30 ML VIAL ONE; +Bupivacaine 0.5%* 50 ML VIAL ONE; +Dexamethasone IV* 4 MG/ML 1 ML (4 MG) IV SLOW PU ONE; +Dexamethasone IV* 4 MG/ML 1 ML (4 MG) ONE; +DiMENhydriNATE IV* 50 MG/ML VIAL IV PUSH PRN; +DiMENhydriNATE IV* 50 MG/ML VIAL ONE; +Famotidine TAB* 20 MG ONE; +Famotidine TAB* 20 MG PO ONE; -HYDROcodone/ACETAMIN 5-325 MG* 1 TAB PO ONE; +HYDROcodone/ACETAMIN 5-325 MG* 1 TAB PO PRN; +HYDROmorphone INJ1* 1 MG/ML SYRINGE IV PRN; +KETAMINE HCL* 50 MG/ML 10 ML VIAL ONE; +Lactated Ringers 1000 ML Bag* 1,000 ML IV SCH; -Lidocaine 1% INJ* 10 MG/ML 30 ML SDV INJ ONE; +Lidocaine 1%* 5 ML VIAL ONE; +Lidocaine 2% PF* 10 ML AMP ONE; +Midazolam* 1 MG/ML 2 ML VIAL (2 MG) ONE; +Naloxone* 0.4 MG/ML 1 ML VIAL IV PRN; +Ondansetron INJ* 2 MG/ML VIAL IV PRN; +Ondansetron INJ* 2 MG/ML VIAL ONE; +Propofol* 10 MG/ML 20 ML BTL ONE; +ROPIVACAINE 5 MG/ML 30 ML BTL (0.5%) ONE; +ceFAZolin 2 GM PREMIX in ORs 2 GM/50 ML BAG IVPB ONE; +fentaNYL* 50 MCG/ML 2 ML VIAL (100 MCG VIAL) ONE
[2018-09-03] MEDS: fentaNYL* 50 MCG/ML 2 ML VIAL (100 MCG VIAL) IV PRN ×4 (14:51→16:35)
[2018-09-03 20:07] VITALS: BP 143/87
--- NOTE | 2018-09-06 12:16 | OP ---
OPERATIVE REPORT: DATE OF OPERATION: 09/03/18 DATE OF : 48 SURGEON: Sigifredo Astudillo MD COUNSELING PROGRAM LEADER: ISAC Leiva ANESTHESIOLOGIST: Dr. Sigifredo Haley. ANESTHESIA: General sedation and regional block, supraclavicular. PRE-OP DIAGNOSIS: Left distal radius fracture, displaced, 3 or more fragments, intraarticular. POST-OP DIAGNOSIS: Left distal radius fracture, displaced, 3 or more fragments, intraarticular. OPERATIVE PROCEDURE: Open reduction internal fixation, left distal radius, intraarticular, 3 or more fragments. ANTIBIOTICS: Ancef 2 g IV. IV FLUIDS: See anesthesia note. TOURNIQUET TIME: 83 minutes at 250 mmHg, left upper arm. [id number] TIME: 83 minutes. RADIATION EXPOSURE: Mini C-arm utilized. Radiation exposure not recorded nor available several days later. SPECIMEN: None. IMPLANTS: Synthes distal radius volar polyaxial locking plate, narrow. ESTIMATED BLOOD LOSS: Minimal. COMPLICATIONS: None. INDICATIONS FOR PROCEDURE: The patient is a 67-year-old woman, who injured herself on 08/26/18, eigh t days preoperatively. It was a fall on an outstretched hand. X- ray images showed a displaced intr aarticular distal radius fracture. Emergency room staff attempted a reduction maneuver. When I saw the patient in clinic, I reviewed the postreduction films. The patient had at least 5 mm of dorsal t ranslation of the main transverse fracture line and 20 degrees of dorsal tilt with some loss of radia l height and inclination and 1.6 mm of intraarticular step off. I described it as an inverse Y-shaped fracture pattern. Due to the amount of displacement, I recommended surgery. The patient was seen by her medical doctor for preoperative optimization and clearance. Discussed risks and potential complications. DESCRIPTION OF PROCEDURE: In the preoperative holding, the patient signed a written consent. Operat indu extremity was marked in the preoperative holding. I also did a skin check taking the patient's s plint down. There was no open skin. Swelling about the wrist was mild to moderate. In the preoperat indu holding, the patient underwent a supraclavicular nerve block, by Dr. Haley. The patient was taken to the operating room and kept on a stretcher. A hand table was attached. The patient was generally sedated. A tourniquet was placed on the left upper arm. Left upper extremity was prepped and draped. Surgical time-out performed. Esmarch was applied and the tourniquet was el evated to 250 mmHg. I made a standard skin incision for the volar approach to the distal radius. Dissected down to the FC R. Released the sheath superficial to the FCR. Retracted the FCR ulnarly. Incised the FCR subsheat h. Retracted the FPL ulnarly. Identified pronator quadratus. I incised it off the radial edge of th e distal radius proximal and distal to the fracture site. Identified fracture lines, multiple. I de brided any soft tissue in or adjacent to these fracture lines. Placed retractors. Performed a reduction maneuver. Reduction looked good visually in the wound. I placed 2 K-wires, 1. 6 cm or 0.062. Each of these were placed to the radial styloid across the fracture site. This held the reduction. A fracture was out of length, but I had not quite fully reestablished volar tilt yet. Sized several plates and I picked the narrow 3-hole locking plate. I placed that in the wound. I pi nned it in place and confirmed good rotation of the plate. I next placed a nonlocking 2.4 mm screw i n the oval hole proximally. I adjusted the proximal to distal position of the plate slightly. I rem mayi one of my K-wires from the radial styloid. I maintained the other and then removed it. I perfo rmed a reduction maneuver and had excellent visual reduction at the fracture lines. I placed K-wires through my plate distally and then placed a nonlocking screw through the plate distally. I obtained mini C-arm images that showed excellent placement of plate and excellent reduction of fracture. I f illed in all screw holes distally with locking 2.4 mm screws. I exchanged the earlier nonlocking scr ew for a locking screw. Proximally, I placed 2 locking 2.4 mm screws. I exchanged now my prior nonl ocking 2.4 for a nonlocking 2.7 mm screw. Excellent visual reduction of fracture fragments in the wound. Excellent radiographic reduction of f racture fragments. Excellent plate position. No screws distally were close to violating the radioca rpal joint. One or two screws got excellent purchase in the smaller lunate fossa fracture fragment. Irrigation. A closure of the radial aspect of the FCR subsheath to the pronator quadratus muscle wit h Vicryl 2.0 suture and [id number] stitches. Closure of the subcutaneous layer with buried simp le stitches using Vicryl 2.0 suture. Closure of the skin with a running stitch using nylon 4.0 suture . A tourniquet was dropped. There was a little bit of oozing from the skin incision, but then I was to ld that the systolic blood pressure at that moment was 170 and so I held pressure and did not mind th e tiniest amount of ooze. There had been no bleeders intraoperative besides bone. Xeroform, 4x4s, sterile Webril. A volar plaster splint was next applied. The patient was lightened of sedation and taken to the PACU. DISPOSITION: The patient will maintain the splint in place at all times. Sling as needed. Pain con trol as needed. The patient will follow up with me in the office 10 to 14 days postoperatively. [id number]/[facility] #: [id number]
== END | disposition home or self-care (01) ==
LOC: OR 10:31
PROVIDERS: ATTEND Orthopaedic Surgery
DX: S52.572A Other intraarticular fracture of lower end of left radius, initial encounter for closed fracture (principal); W01.0XXA Fall on same level from slipping, tripping and stumbling without subsequent striking against object, initial encounter; Y93.G3 Activity, cooking and baking; Y92.511 Restaurant or cafe as the place of occurrence of the external cause; I10 Essential (primary) hypertension; I25.2 Old myocardial infarction; J44.9 Chronic obstructive pulmonary disease, unspecified; M79.7 Fibromyalgia; M19.90 Unspecified osteoarthritis, unspecified site; Z87.09 Personal history of other diseases of the respiratory system
CPT/HCPCS: A9270-GY; C1713; C1776; J0690; J1100; J1240; J2001; J2250; J2405; J2704; J2795; J3010; J3490